=== PATIENT | female | born 1960 | race Caucasian/White ===

== ENCOUNTER 2016-12-22 05:40 | Inpatient (IN) | payer BC ==
[2016-11-10 08:43] VITALS: BMI 55.0; BMI 56.0
--- NOTE | 2016-11-10 09:23 | PAT Medication Instructions ---
Service Date Nov 10, 2016. Current Home Medication List Biotin (Biotin), 5,000 MCG PO QPM Calcium (Caltrate), 600 MG PO QAM Cyclobenzaprine Hcl (Flexeril), 10 MG PO TID PRN for Muscle Spasm Fluorometholone (Ophth) (Fluorometholone), 1 DROP OPB Q2D Loteprednol Etabonate (Lotemax), 1 APPLN OPB Q2D Melatonin (Melatonin), 5 MG PO HS Multivitamin (Multivitamin), 1 TAB PO QPM Medication Instructions For Your Scheduled Surgery - Continue as directed: Fluorometholone (Ophth) (Fluorometholone), 1 DROP OPB Q2D Loteprednol Etabonate (Lotemax), 1 APPLN OPB Q2D - Hold the following medications as of 11/11/16: Biotin (Biotin), 5,000 MCG PO QPM - Hold the following medications the morning of surgery: Cyclobenzaprine Hcl (Flexeril), 10 MG PO TID PRN for Muscle Spasm Calcium (Caltrate), 600 MG PO QAM - Take the following medications as scheduled the night before surgery: Melatonin (Melatonin), 5 MG PO HS Multivitamin (Multivitamin), 1 TAB PO QPM Cyclobenzaprine Hcl (Flexeril), 10 MG PO TID PRN for Muscle Spasm *Nothing to eat or drink after midnight* If you have any questions please call us at [phone] or [phone] or [phone]
[2016-11-10 10:42] LABS: BASO % 0.4 %; BASO ABS # 0.02 K/uL (0-0.2); COMPLETE YES; HEMATOCRIT 35.4 % (37-47); IG% 0.2 %; LYMPH % 30.2 %; MEAN CELL VOLUME 80.3 fL (80-100); MEAN CORPUSCULAR HEMOGLOBIN 24.7 pg (25-34); MEAN CORPUSCULAR HGB CONC 30.8 g/dl (32-36); MEAN PLATELET VOLUME 10.2 fL (7.4-10.4); MONO % 8.2 %; PLATELET COUNT 255 K/uL (130-400); RED BLOOD COUNT 4.41 M/uL (4.2-5.4); WHITE BLOOD COUNT 4.97 K/uL (4.8-10.8)
[2016-11-10 10:46] LABS: URINE APPEARANCE CLEAR (CLEAR); URINE BILIRUBIN NEG (NEG); URINE COLOR YELLOW; URINE NITRITE NEG (NEG); URINE SPECIFIC GRAVITY 1.017 (1.000-1.030); UROBILINOGEN NEG (NEG)
[2016-11-10 10:52] LABS: MANUAL MICROSCOPIC REQUIRED? NO; REVIEW REQ? NO
[2016-11-10 11:13] LABS: BUN/CREATININE RATIO 18.8 (10-20); CREATININE 0.65 mg/dl (0.60-1.20); POTASSIUM 3.9 mmol/L (3.5-5.1)
--- NOTE | 2016-11-21 07:25 | History & Physical Bridge Note ---
H&P Re-Evaluation Bridge Note: I have examined the patient, reviewed the History & Physical and in the interval since the performance of the History & Physical I have noted the following changes of clinical significance: No changes noted
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
[2016-12-22] VITALS (20 sets, daily range): BP systolic 123–168; BP diastolic 80–89; PULSE 56–83; TEMP 36.5–37; O2SAT 97–99; Ht 160 cm; Wt 142.9 kg
[~2016-12-22] VITALS: Ht 160 cm; Wt 142.9 kg
[~2016-12-22 05:40] MED LIST: BIOT1CAP3 PO; CALCTAB5 PO; CEFAZOLIN 3000 MG/65 ML D5W 65 ML IV SCH; CYCL10TA6 PO; FLUO0.1S12 OPB; LACTATED RINGER'S 1000ML IV SCH; LOTE1GEL OPB; MELA1TAB54 PO; MULT-506 PO
[2016-12-22] MEDS ORDERED: CEFAZOLIN 3000 MG/65 ML D5W IV SCH (06:00)
[2016-12-22] MEDS ORDERED: LACTATED RINGER'S 1000ML 1,000 ML IV SCH (06:00)
[2016-12-22] MEDS ORDERED: LIDOCAINE HCL 2% 2 ML VIAL (20MG/ML) ONE (06:23)
[2016-12-22] MEDS ORDERED: ONDANSETRON INJ 2 MG/ML 2 ML VIAL ONE (06:23)
[2016-12-22] MEDS ORDERED: MIDAZOLAM HCL 1 MG/ML 2ML VIAL ONE (06:23)
[2016-12-22] MEDS ORDERED: DEXAMETHASONE SOD INJ 4 MG/ML VIAL ONE (06:23)
[2016-12-22] MEDS ORDERED: PROPOFOL IV EMULSION 10 MG/ML 20 ML VIAL IV ONE (06:23)
[2016-12-22] MEDS ORDERED: FENTANYL CITRATE INJ 50 MCG/1 ML 2 ML VIAL ONE ×2 (06:23→09:18)
[2016-12-22] MEDS ORDERED: ROCURONIUM BROMIDE 10 MG/ML 5 ML VIAL ONE (06:23)
[2016-12-22] MEDS ORDERED: KETAMINE HCL INJ 50 MG/ML 10 ML VIAL ONE (06:23)
[2016-12-22] MEDS ORDERED: SUCCINYLCHOLINE CHLORIDE 20 MG/ML 10 ML VIAL IV ONE (06:23)
[2016-12-22] MEDS ORDERED: SODIUM CHLORIDE 0.9% INJ 10 ML VIAL ONE (06:43)
[2016-12-22] MEDS ORDERED: EpHEDrine SULFATE INJ 50 MG/ML AMP IV PRN (07:00)
[2016-12-22] MEDS ORDERED: ATROPINE SULFATE 0.1 MG/ML 5ML SYR IV PRN (07:00)
[2016-12-22] MEDS ORDERED: ONDANSETRON INJ 2 MG/ML 2 ML VIAL IV PRN (07:00)
[2016-12-22] MEDS ORDERED: NEOSTIGMINE METHYLSULFATE 5 MG/5 ML SYR ONE (08:11)
[2016-12-22] MEDS ORDERED: GLYCOPYRROLATE INJ 0.2 MG/ML VIAL ONE (08:11)
[2016-12-22] MEDS ORDERED: BACITRACIN 50000 UNIT VIAL IR ONE (09:12)
[2016-12-22] MEDS ORDERED: FLOSEAL HEMOSTATIC MATRIX 5ML TOP ONE (09:12)
--- NOTE | 2016-12-22 09:19 | [facility] Post Operative Brief Note ---
Immediate Operative Summary Operative Date Dec 22, 2016. Pre-Operative Diagnosis Disc deterioration, neural foraminal stenosis Post-Operative Diagnosis Disc deterioration, neural foraminal stenosis Procedure(s) Performed c6 Surgeon Dr. Cristino Tamayo Business Operations Coordinator Surgeon(s) Betty Peterson PA-C Estimated Blood Loss 25 Findings stenosis Specimens none per surgeon
[2016-12-22] MEDS ORDERED: HYDROmorphone INJ 0.5 MG/0.5 ML SYR IV PRN (09:30)
[2016-12-22] MEDS ORDERED: NALOXONE HCL 0.4 MG/1 ML VIAL/CARP IV PRN (09:30)
[2016-12-22] MEDS ORDERED: SCOPOLAMINE 1.5 MG TDSY TD SCH (09:30)
[2016-12-22] MEDS ORDERED: DiphenhydrAMINE HCL 50 MG/ML VIAL IV PRN (09:30)
[2016-12-22] MEDS ORDERED: MAGNESIUM HYDROXIDE SUSP 30 ML UDC PO PRN (09:30)
[2016-12-22] MEDS ORDERED: LORAZEPAM 0.5 MG TAB PO PRN (09:30)
[2016-12-22] MEDS ORDERED: DO NOT ADMINISTER FLU VACCINE PRN ×3 (09:30)
[2016-12-22] MEDS ORDERED: ACETAMINOPHEN IV 100 ML IV PRN (09:30)
[2016-12-22] MEDS ORDERED: DEXAMETHASONE INJ 8 MG in SYRINGE 0 ML IV PRN (09:30)
[2016-12-22] MEDS ORDERED: RACEPINEPHRINE 2.25% NEBU SOLN 0.5 ML VIAL INH PRN (09:30)
[2016-12-22] MEDS ORDERED: LORAZEPAM INJ 0.5 MG in SYRINGE 0.75 ML IV PRN (09:30)
[2016-12-22] MEDS ORDERED: DO NOT ADMINISTER PNEUMOCOCCAL VACCINE PRN ×2 (09:30)
--- NOTE | 2016-12-22 09:35 | OPERATIVE REPORT ---
DATE OF OPERATION: 12/22/2016 PREOPERATIVE DIAGNOSES: Cervical spondylosis, myeloradiculopathy. POSTOPERATIVE DIAGNOSES: Same. PROCEDURES PERFORMED: 1. Anterior cervical corpectomy, bilateral foraminotomies C6. 2. Anterior cervical arthrodesis C5-C7. 3. Placement of PEEK cage 25 mm in height between C5 and C7. 4. Placement of locally harvested morcellized autograft combined with Maddy bone grafting in interbody cage. 5. Placement of Hirsch plate and screws from C5-C7. SURGEON: Dr. Cristino Santos. DEFENSIVE DRIVING INSTRUCTOR: Betty Beck PA-C. Due to the complex nature of the procedure, the entire surgery was performed with the offset assistant press operator of MARIA T Biggs. The bilingual sales assistant, under direct supervision, was involved in the actual performance of all aspects of the surgical procedure including hemostasis, tissue retraction and incision, instrument management, patient positioning, and wound closure. ANESTHESIA: General. DISPOSITION: The patient awakened and taken to PACU in stable condition. HISTORY OF PATIENT'S PROBLEMS: A 56-year-old female that presents with above-mentioned diagnosis after failing an extensive course of nonoperative care, elected to undergo the above-mentioned procedure. Risks, benefits, pros, cons, and alternatives were outlined in detail preoperatively. DESCRIPTION OF PROCEDURE: The patient was met with preoperatively, case discussed and all questions were addressed. At that point, the patient was taken back to operative suite and after undergoing successful general endotracheal intubation by department of anesthesia, was placed in supine position on Chalino table with head in Kumar head wrestling coach. All bony prominences were well padded and the eyes were inspected to ensure there was no external pressure placed upon them. At this point, anterior cervical spine was prepped and draped in normal sterile fashion. With the assistance of fluoroscopy, we identified the C6 vertebral body and a transverse incision was placed along the right anterior aspect of the cervical spine overlying this region. Sharp dissection with the assistance of bipolar electrocautery performed down to and exposing anterior cervical spine from C5-C7. We verified our position with fluoroscopy. A self-retaining retractor was placed. I then performed a complete discectomy of C5-6 out to the uncovertebral joints bilaterally followed by C6-7. [place] distracting pins were then placed in C5 and C7 to distract across the C6 vertebral body. A complete corpectomy was then performed including removal of all posterior anular fibers in the longitudinal ligament to address all compression and foraminal disease. Endplates were then burred to subcortical bleeding bone and a 25 mm PEEK cage filled with locally harvested morcellized autograft and Maddy bone graft, tapped in position. Distractor apparatus was removed. Hirsch plate and screws applied with the assistance of fluoroscopy. Incision was then copiously irrigated, explored to ensure there was no damage to surrounding structures or remaining bleeding, 10 round BRAYDEN drain inserted. It was then closed with 2-0 Vicryl in the fascia, 4-0 Monocryl for final skin closure. Steri-Strips and sterile dressing placed. The patient was awakened and taken to PACU in stable condition. I attest to the content of the Intraoperative Record and any orders documented therein. Any exceptio ns are noted below.
[2016-12-22] MEDS: FENTANYL CITRATE INJ 50 MCG/1 ML 2 ML VIAL IV PRN ×4 (09:46→10:01)
--- NOTE | 2016-12-22 10:03 | DIAGNOSTIC IMAGING REPORT ---
INTRAOPERATIVE FLUOROSCOPIC IMAGES OF THE CERVICAL SPINE CLINICAL HISTORY: C6 corpectomy. Anterior fusion. COMPARISON STUDY: Cervical spine CT September 12, 2016. FLUOROSCOPY TIME: 8 seconds. FINDINGS: 2 fluoroscopic images were obtained. Exact localization is difficult given partial visualization of the cervical spine. The images suggest a C6 corpectomy with anterior plate and screws from C5 through C7. IMPRESSION: Intraoperative images demonstrate a C6 corpectomy and C5-C7 anterior fusion. Electronically signed by: Kevin Garduno M.D. 12/22/2016 10:02 AM Dictated Date/Time: 12/22/2016 9:55 AM
[2016-12-22] MEDS ORDERED: HYDROmorphone INJ 1 MG/ML SYR ONE (10:12)
--- NOTE | 2016-12-22 10:54 | Anesthesiology Progress Note ---
Anesthesia Post Op Note Date & Time Dec 22, 2016 at 10:54 Vital Signs Vital Signs Past 12 Hours Date Time Temp Pulse Resp B/P Pulse Ox O2 Delivery O2 Flow Rate FiO2 12/22/16 10:45 36.2 57 12 145/74 99 Nasal Cannula 4 12/22/16 10:35 62 12 170/85 98 Nasal Cannula 4 12/22/16 10:25 69 16 171/87 96 Nasal Cannula 4 12/22/16 10:15 61 14 160/104 92 Nasal Cannula 4 12/22/16 10:05 64 12 161/86 97 Nasal Cannula 4 12/22/16 09:55 66 14 163/92 94 Mask 10 12/22/16 09:45 70 14 160/89 96 Mask 10 12/22/16 09:39 36.4 96 20 198/110 97 Mask 10 12/22/16 06:30 37 71 20 168/80 Room Air 96 Notes Mental Status: alert / awake / arousable, participated in evaluation Pt Amnestic to Procedure: Yes Nausea / Vomiting: adequately controlled Pain: adequately controlled Airway Patency, RR, SpO2: stable & adequate BP & HR: stable & adequate Hydration State: stable & adequate Anesthetic Complications: no major complications apparent
[2016-12-22] MEDS: LACTATED RINGER'S 1000ML 1,000 ML IV SCH (13:03)
[2016-12-22] MEDS: HYDROmorphone INJ 0.5 MG/0.5 ML SYR IV PRN ×3 (13:09→23:24)
[2016-12-22] MEDS ORDERED: RXC5 PO (14:27)
--- NOTE | 2016-12-22 14:28 | Discharge Instructions ---
Discharge Instructions Admission Reason for Admission: Cervical Spinal Stenosis Discharge Discharge Diagnosis / Problem: stenosis Discharge Goals Goal(s): Improve function Activity Recommendations Activity Limitations: per Instructions/Follow-up section . Instructions / Follow-Up Instructions / Follow-Up ACTIVITY RECOMMENDATIONS: SELF CARE INSTRUCTIONS AFTER CERVICAL FUSIONS 1. No smoking. Smoking drastically decreases the chance of a solid fusion. 2. No bending, lifting more than 5 pounds, or twisting (roll like a log when turning in bed). 3. You may shower 3 days after surgery. Thoroughly dry wound. Do not soak in the tub. 4. Cervical collar: Must be worn at all times including sleeping. You may remove the brace only to bath, eat and if you are sitting in a recliner. 5. Please walk as much as you can for exercise. Gradually increase the distance that you walk as your endurance increases. SPECIAL CARE INSTRUCTIONS: VERY IMPORTANT TO READ AND REVIEW A. Do not take any anti-inflammatory medications (i.e. Indocin, Advil, Aspirin, Naprosyn, Aleve, Motrin, etc.) as these may inhibit the chance of a solid fusion. Tylenol is okay to take. B. Your surgical incision has been closed with a cosmetic suture under the skin that will dissolve in about 6 weeks. In 14 days, you can use a pair of clean scissors and cut the suture that is left outside of the skin at the ends of your incision. C. Complications are uncommon, but please contact us if you have any signs or symptoms of: 1. wound infection (fever higher than 102.5 degrees F, redness, separation of wound, drainage, or increasing pain from the incision) 2. blood clots in legs (pain, swelling, redness and warmth in legs) 3. urinary tract infection (fever higher than 102.5 degrees, burning upon urination or increased frequency of urination) 4. nerve problems (inability to walk on your toes or heels, numbness, loss of bowel or bladder control) 5. any other symptoms that concern you. D. Please call the office at if you have any concerns or questions about your operation or recovery. MANAGING PAIN AFTER SPINAL SURGERY 1. Narcotic medication is intended for short-term use and will be provided for surgical pain. Surgical pain usually lasts for a period of 4-6 weeks. Narcotic medication includes Percocet, Vicodin, Darvocet, Tylenol #3 or Lortab. 2. Longer-term pain is more appropriately treated with non-narcotic medication such as Tylenol ES. 3. Muscle spasm is not appropriately treated with narcotics. Muscle relaxers such as Soma, Flexeril or Skelaxin can be used along with Tylenol ES. 4. Remember that we all live with some "aches and pains". This is not unusual or uncommon after an injury or as we get older. 5. We will provide appropriate medication within the normal guidelines of their prescribed use. We will also be very cautious and aware of potential abuse and extended duration of patients' medication needs. 6. Please allow 2-3 days to process refills. Prescriptions will not be mailed but must be picked up at the office. FOLLOW UP VISIT: Keep your scheduled follow-up appointment. Any questions, please call the office at . Current Hospital Diet Patient's current hospital diet: Clear Liquid Diet Discharge Diet Recommended Diet: Regular Diet Procedures Procedures Performed: c6 Pending Studies Studies pending at discharge: no Medical Emergencies . Who to Call and When: Medical Emergencies: If at any time you feel your situation is an emergency, please call 911 immediately. . Non-Emergent Contact Non-Emergency issues call your: Primary Care Provider . "Provider Documentation" section prepared by Cristino Santos. VTE Core Measure Inpt VTE Proph given/why not?: Jigar Oliveira, SCD's
[2016-12-22] MEDS: CHECK SCOPOLAMINE PATCH PLACEMENT SCH (15:55)
[2016-12-22] MEDS: ONDANSETRON INJ 2 MG/ML 2 ML VIAL IV PRN ×2 (16:44→22:23)
[2016-12-22] MEDS: DEXAMETHASONE INJ 6 MG in SYRINGE 0 ML IV SCH (18:02)
[2016-12-22] MEDS: CEFAZOLIN IV 3,000 MG in DEXTROSE 5% 50ML 50 ML IV SCH (20:15)
[2016-12-22] MEDS: DOCUSATE SODIUM 100 MG CAP PO SCH (21:00)
[2016-12-23] VITALS (14 sets, daily range): BP systolic 124–152; BP diastolic 75–86; PULSE 62–88; TEMP 36.5–37.2; O2SAT 93–97
[2016-12-23] MEDS: CHECK SCOPOLAMINE PATCH PLACEMENT SCH ×3 (00:01→16:08)
[2016-12-23] MEDS: LACTATED RINGER'S 1000ML 1,000 ML IV SCH (00:56)
[2016-12-23] MEDS: DEXAMETHASONE INJ 6 MG in SYRINGE 0 ML IV SCH ×2 (01:46→13:43)
[2016-12-23] MEDS: CEFAZOLIN IV 3,000 MG in DEXTROSE 5% 50ML 50 ML IV SCH ×2 (04:03→13:40)
[2016-12-23] MEDS: HYDROmorphone INJ 0.5 MG/0.5 ML SYR IV PRN (04:37)
--- NOTE | 2016-12-23 08:43 | Anesthesiology Progress Note ---
Anesthesia Post Op Note Date & Time Dec 23, 2016 at 08:43 Vital Signs Pain Intensity: 2.0 Vital Signs Past 12 Hours Date Time Temp Pulse Resp B/P Pulse Ox O2 Delivery O2 Flow Rate FiO2 12/23/16 07:26 76 18 96 Nasal Cannula 1.0 12/23/16 06:49 37.1 73 18 124/75 96 Nasal Cannula 1.0 Humidified Oxygen 12/23/16 06:13 95 Nasal Cannula 1.0 Humidified Oxygen 12/23/16 04:54 36.5 72 18 144/81 97 Nasal Cannula 2.0 Humidified Oxygen 12/23/16 04:20 78 18 96 Nasal Cannula 3.0 12/23/16 03:08 37.2 73 18 133/83 97 Nasal Cannula 3.0 Humidified Oxygen 12/23/16 03:04 37.2 73 18 133/83 97 Nasal Cannula 3.0 Humidified Oxygen 12/23/16 00:53 36.7 79 18 129/81 97 Nasal Cannula 3.0 12/23/16 00:51 36.7 79 18 129/81 97 Nasal Cannula 3.0 12/22/16 23:47 68 14 98 Nasal Cannula 3.0 12/22/16 23:15 98 Nasal Cannula 3.0 12/22/16 22:47 36.5 71 18 142/84 98 Nasal Cannula 3.0 12/22/16 22:45 36.5 71 18 142/84 98 Nasal Cannula 3.0 12/22/16 22:45 36.5 14 142/84 98 Nasal Cannula 3.0 96 12/22/16 20:54 36.8 18 149/81 97 Nasal Cannula 3.0 Notes Mental Status: alert / awake / arousable, participated in evaluation Pt Amnestic to Procedure: Yes Nausea / Vomiting: adequately controlled Pain: adequately controlled Airway Patency, RR, SpO2: stable & adequate BP & HR: stable & adequate Hydration State: stable & adequate Anesthetic Complications: no major complications apparent
[2016-12-23] MEDS: DOCUSATE SODIUM 100 MG CAP PO SCH (09:00)
[2016-12-23] MEDS: OXYCODONE HCL IR 5 MG TAB (IMMEDIATE RELEASE) PO PRN ×2 (09:01→13:41)
--- NOTE | 2016-12-23 14:10 | DISCHARGE SUMMARY ---
PRINCIPAL DIAGNOSIS: Cervical spondylosis, mild radiculopathy. HOSPITAL COURSE FOLLOWS: On December 22, patient underwent anterior cervical corpectomy and tolerated this well and taken to the orthopedic floor postoperatively. Postop day #1, she was up and ambulatory, swallowing well, arm symptoms improved. Subsequently discharged home. Discharge orders and instructions found on the chart for further review.
[2016-12-24] MEDS ORDERED: BISACODYL 10 MG SUPP PR PRN (06:00)
[2016-12-24] MEDS ORDERED: BISACODYL 5 MG TABEC PO PRN (06:00)
[2016-12-25] MEDS ORDERED: POLYETHYLENE (MIRALAX) 17 GM PACK PO SCH (09:00)
== END 2016-12-23 16:55 | disposition home or self-care (01) | DRG 473 ==
LOC: ENRESERVTM → ENRESERVDT → C.ACU 05:40 → C.3E 07:30
PROVIDERS: ADMIT Orthopaedic Surgery Orthopaedic Surgery of the Spine; ATTEND Orthopaedic Surgery Orthopaedic Surgery of the Spine
PROC: 0RT30ZZ Resection of Cervical Vertebral Disc, Open Approach (ICD-10-PCS; 2016-12-22)
PROC: 0RG20A0 Fusion of 2 or more Cervical Vertebral Joints with Interbody Fusion Device, Anterior Approach, Anterior Column, Open Approach (ICD-10-PCS; principal; 2016-12-22 07:30)
DX: M47.22 Other spondylosis with radiculopathy, cervical region (principal); M19.90 Unspecified osteoarthritis, unspecified site; Z96.653 Presence of artificial knee joint, bilateral; Z98.84 Bariatric surgery status; Z94.7 Corneal transplant status; Z79.899 Other long term (current) drug therapy; Z82.49 Family history of ischemic heart disease and other diseases of the circulatory system; Z80.9 Family history of malignant neoplasm, unspecified; Z82.61 Family history of arthritis

== ENCOUNTER → 2017-11-13 | Outpatient (CLI) | payer BC ==
[~2017-11-13] MED LIST changes: -CEFAZOLIN 3000 MG/65 ML D5W 65 ML IV SCH; +GADAVIST IV PRN; -LACTATED RINGER'S 1000ML IV SCH; +RXC5 PO
--- NOTE | 2017-11-13 15:14 | DIAGNOSTIC IMAGING REPORT ---
MRI OF THE BRAIN WITHOUT AND WITH IV CONTRAST CLINICAL HISTORY: G50.1 Atypical facial [id number] RIGHT-SIDED FACIAL AND EAR PAIN. COMPARISON STUDY: Noncontrast head CT dated 09/12/2016 TECHNIQUE: MRI of the brain was performed from the vertex to the skull base utilizing various T1 and T2 weighted sequences. Following the IV administration of 14 mL of Gadavist contrast, additional enhanced images were obtained. FINDINGS: Sagittal T1, axial diffusion, proton density and T2 weighted axial, coronal FLAIR, and pre and post axial, coronal, and sagittal T1-weighted images were acquired. No intra or extra-axial mass lesions are visualized. Axial diffusion-weighted images reveal no evidence of acute or subacute infarction. There is no evidence of ventricular dilatation. Proton density T2-weighted and FLAIR images reveal minimal foci of increased T2 signal within the white matter, likely on a small vessel basis. There are no abnormal flow voids. There is no evidence of pathologic enhancement. No trigeminal nerve lesions are visualized. Inflammatory changes are present within the right frontal and ethmoid sinuses. IMPRESSION: 1. No acute intracranial findings. 2. No evidence of acute or subacute infarction 3. No evidence of intracranial mass. No trigeminal lesions are visualized 4. Inflammatory changes within the right frontal and ethmoid sinuses Electronically signed by: Dakota Christina M.D. 11/13/2017 3:13 PM Dictated Date/Time: 11/13/2017 3:07 PM
== END | disposition home or self-care (01) ==
LOC: C.MRIBC 13:57
PROVIDERS: ATTEND Psychiatry & Neurology Neurology
DX: G50.1 Atypical facial pain (principal)

== ENCOUNTER 2018-04-14 15:45 | Inpatient (IN) | payer BC, OTHER ==
[~2018-04-14] VITALS: Ht 160 cm; Wt 140.5 kg
[~2018-04-14 15:45] MED LIST changes: -BIOT1CAP3 PO; -GADAVIST IV PRN
[2018-04-14] MEDS ORDERED: PIPERACILLIN/TAZOBACTAM 4.5 GM/100ML D5W IV STA (16:03)
[2018-04-14] MEDS ORDERED: SODIUM CHLORIDE 0.9% 1000ML 1,000 ML IV ONE (16:03)
[2018-04-14] MEDS ORDERED: ACETAMINOPHEN 500 MG TAB PO STA (16:03)
[2018-04-14] MEDS ORDERED: VANCOMYCIN IV 2,500 MG in SODIUM CHLORIDE 0.9% 500ML 500 ML IV STA (16:13)
[2018-04-14] MEDS ORDERED: VANCOMYCIN CONSULT ACTIVE PRN ×2 (16:15→19:00)
--- NOTE | 2018-04-14 16:21 | DIAGNOSTIC IMAGING REPORT ---
CHEST ONE VIEW PORTABLE CLINICAL HISTORY: Sepsis COMPARISON STUDY: 09/12/2016 FINDINGS: The heart is normal in size. There is mild mediastinal prominence, likely secondary to mediastinal fat deposition given the patient's body habitus. There are postsurgical changes in the cervical spine. There is no failure. There is no focal pulmonary consolidation. There are no pleural effusions.[ IMPRESSION: No active disease in the chest. Electronically signed by: Dakota Christina M.D. 04/14/2018 4:20 PM Dictated Date/Time: 04/14/2018 4:19 PM
[2018-04-14 16:47] LABS: BASO % 0.1 %; BASO ABS # 0.01 K/uL (0-0.2); EOS % 0.1 %; EOS ABS # 0.01 K/uL (0-0.5); HEMATOCRIT 36.2 % (37-47); HEMOGLOBIN 11.7 g/dL (12.0-16.0); IG# 0.03 K/uL (0.00-0.02); LYMPH % 12.9 %; LYMPH ABS # 1.19 K/uL (1.2-3.4); MEAN CORPUSCULAR HEMOGLOBIN 25.5 pg (25-34); MEAN CORPUSCULAR HGB CONC 32.3 g/dl (32-36); MONO % 7.8 %; MONO ABS # 0.72 K/uL (0.11-0.59); NEUT % 78.8 %; NEUT ABS # 7.26 K/uL (1.4-6.5); PLATELET COUNT 155 K/uL (130-400); RED CELL DISTRIBUTION WIDTH CV 17.8 % (11.5-14.5); RED CELL DISTRIBUTION WIDTH SD 51.2 fL (36.4-46.3); WHITE BLOOD COUNT 9.22 K/uL (4.8-10.8)
--- NOTE | 2018-04-14 16:50 | EMERGENCY ROOM VISIT NOTE ---
History Report prepared by Sheba: Sarahi Jacobo Under the Supervision of: Dr. Chava Curiel M.D. First contact with patient: 15:55 Chief Complaint: FEVER Stated Complaint: FEVER AND RASH History of Present Illness The patient is a 57 year old female who presents to the Emergency Room with complaints of constant fever for 3 days. The patient states that it started while she was sleeping and she woke up shaking at 0300. She states that she noticed a rash starting on her stomach shortly before the fever started. She states that it wraps around towards her back and is warm. She reports that she associated it with the fever and the body aches she has been having. The patient states that she tried taking Tylenol with no relief and notes her last dose was 3.5 hours ago. She reports that she went to Urgent Care and was sent here because they believed she may need IV antibiotics. The patient complains of chills and dizziness. The patient denies ever having this before, a stuffy nose, a sore throat, a cough, vomiting, diarrhea, and urinary symptoms. She notes that she has no history of diabetes, kidney problems, hypertension. The patient notes that she takes over the counter Zinc and Iron. She notes a history of trigeminal neuralgia. Source of History: patient Onset: 3 days Position: other (global) Quality: other (fever) Timing: constant Associated Symptoms: + chills, + rash, No sorethroat, No cough, No vomiting , No diarrhea, No urinary symptoms Note: The patient complains of dizziness and body aches. The patient denies a runny nose. Review of Systems See HPI for pertinent positives & negatives. A total of 10 systems reviewed and were otherwise negative. Past Medical & Surgical Medical Problems: (1) Asthma (2) Cellulitis (3) Cervical stenosis of spinal canal (4) Distal radius fracture, left (5) Hypertension Nos (6) Morbid Obesity (7) Trigeminal neuralgia Surgical Problems: (1) Bariatric Surgery Status (2) Corneal transplant status (3) History of carpal tunnel release of both wrists (4) Hx of gastric bypass (5) Knee Joint Replacement Status Family History Diabetes mellitus FH: heart disease Hypertension Social History Smoking Status: Never Smoker Alcohol Use: none Drug Use: none Marital Status: Housing Status: lives with significant other Occupation Status: unemployed Current/Historical Medications Scheduled Biotin (Biotin), 5,000 MCG PO QPM Calcium Carbonate (Calcium 600), 600 MG PO QAM Multivitamin (Multivitamin), 1 TAB PO QPM Oxcarbazepine (Oxcarbazepine), 300 MG PO BID Scheduled PRN Benzonatate (Benzonatate), 100 MG PO TID PRN for Cough Cyclobenzaprine HCl (Cyclobenzaprine HCl), 10 MG PO TID PRN for Muscle Spasm Zolpidem Tartrate (Zolpidem Tartrate), 5 MG PO HS PRN for Sleep Allergies Coded Allergies: NSAIDs (Verified Adverse Reaction, Unknown, cannot take d/t hx of gastric bypass, 12/22/16) Physical Exam Vital Signs Date Time Temp Pulse Resp B/P (MAP) Pulse Ox O2 Delivery O2 Flow Rate FiO2 04/14/18 16:59 82 145/97 95 Room Air 04/14/18 16:29 97 Room Air 04/14/18 15:58 39.3 04/14/18 15:48 38.9 99 20 124/74 97 Room Air Physical Exam GENERAL: Patient is in no acute distress. HEENT: No acute trauma, normocephalic atraumatic, mucous membranes moist, no nasal congestion, no scleral icterus. NECK: No stridor, no adenopathy, no meningismus, trachea is midline. LUNGS: Clear to auscultation bilaterally, no wheeze, no rhonchi, breath sounds equal. HEART: Without murmurs gallops or rubs, regular rate and rhythm. ABDOMEN: Soft, nontender, bowel sounds positive, no hernias, no peritonitis. EXTREMITIES: No cyanosis or edema, full range of motion of all the joints without pain or difficulty, no signs for acute trauma. NEUROLOGIC: Oriented x 3, no acute motor or sensory deficits, no focal weakness. SKIN: Skin has an erythematous, warm, cellulitic appearing rash extending across the lower abdomen in a band around to the buttock and down the sides of the buttock. No drainage. There is an open healing lesion to the left lower quadrant without any drainage. Mild erythema to the left groin crease. Medical Decision & Procedures ER Provider Diagnostic Interpretation: Radiology results as stated below per my review and radiologist interpretation: CHEST ONE VIEW PORTABLE CLINICAL HISTORY: Sepsis COMPARISON STUDY: 09/12/2016 FINDINGS: The heart is normal in size. There is mild mediastinal prominence, likely secondary to mediastinal fat deposition given the patient's body habitus. There are postsurgical changes in the cervical spine. There is no failure. There is no focal pulmonary consolidation. There are no pleural effusions.[ IMPRESSION: No active disease in the chest. Electronically signed by: Dakota Christina M.D. 04/14/2018 4:20 PM Dictated Date/Time: 04/14/2018 4:19 PM Laboratory Results 04/14/18 16:25 Red Blood Count 4.58, Mean Corpuscular Volume 79.0, Mean Corpuscular Hemoglobin 25.5, Mean Corpuscular Hemoglobin Concent 32.3, Mean Platelet Volume 9.0, Neutrophils (%) (Auto) 78.8, Lymphocytes (%) (Auto) 12.9, Monocytes (%) (Auto) 7.8, Eosinophils (%) (Auto) 0.1, Basophils (%) (Auto) 0.1, Neutrophils # (Auto) 7.26, Lymphocytes # (Auto) 1.19, Monocytes # (Auto) 0.72, Eosinophils # (Auto) 0.01, Basophils # (Auto) 0.01 04/14/18 16:25 Test 04/14/18 16:25 04/14/18 16:30 04/14/18 16:36 White Blood Count 9.22 K/uL (4.8-10.8) Red Blood Count 4.58 M/uL (4.2-5.4) Hemoglobin 11.7 g/dL (12.0-16.0) Hematocrit 36.2 % (37-47) Mean Corpuscular Volume 79.0 fL (80-100) Mean Corpuscular Hemoglobin 25.5 pg (25-34) Mean Corpuscular Hemoglobin Concent 32.3 g/dl (32-36) Platelet Count 155 K/uL (130-400) Mean Platelet Volume 9.0 fL (7.4-10.4) Neutrophils (%) (Auto) 78.8 % Lymphocytes (%) (Auto) 12.9 % Monocytes (%) (Auto) 7.8 % Eosinophils (%) (Auto) 0.1 % Basophils (%) (Auto) 0.1 % Neutrophils # (Auto) 7.26 K/uL (1.4-6.5) Lymphocytes # (Auto) 1.19 K/uL (1.2-3.4) Monocytes # (Auto) 0.72 K/uL (0.11-0.59) Eosinophils # (Auto) 0.01 K/uL (0-0.5) Basophils # (Auto) 0.01 K/uL (0-0.2) RDW Standard Deviation 51.2 fL (36.4-46.3) RDW Coefficient of Variation 17.8 % (11.5-14.5) Immature Granulocyte % (Auto) 0.3 % Immature Granulocyte # (Auto) 0.03 K/uL (0.00-0.02) Prothrombin Time 10.9 SECONDS (9.0-12.0) Prothromb Time International Ratio 1.0 (0.9-1.1) Activated Partial Thromboplast Time 32.4 SECONDS (21.0-31.0) Partial Thromboplastin Ratio 1.2 Anion Gap 9.0 mmol/L (3-11) Est Creatinine Clear Calc Drug Dose 114.5 ml/min Estimated GFR () 102.6 Estimated GFR (Non- 88.5 BUN/Creatinine Ratio 10.9 (10-20) Calcium Level 8.4 mg/dl (8.5-10.1) Magnesium Level 2.0 mg/dl (1.8-2.4) Total Bilirubin 0.5 mg/dl (0.2-1) Aspartate Amino Transf (AST/SGOT) 15 U/L (15-37) Alanine Aminotransferase (ALT/SGPT) 12 U/L (12-78) Alkaline Phosphatase 88 U/L (45-117) Total Protein 6.9 gm/dl (6.4-8.2) Albumin 2.9 gm/dl (3.4-5.0) Globulin 4.0 gm/dl (2.5-4.0) Albumin/Globulin Ratio 0.7 (0.9-2) Urine Color YELLOW Urine Appearance CLEAR (CLEAR) Urine pH 6.0 (4.5-7.5) Urine Specific [place] 1.013 (1.000-1.030) Urine Protein 1+ (NEG) Urine Glucose (UA) NEG (NEG) Urine Ketones TRACE (NEG) Urine Occult Blood 1+ (NEG) Urine Nitrite NEG (NEG) Urine Bilirubin NEG (NEG) Urine Urobilinogen NEG (NEG) Urine Leukocyte Esterase MODERATE (NEG) Urine WBC (Auto) >30 /hpf (0-5) Urine RBC (Auto) 0-4 /hpf (0-4) Urine Hyaline Casts (Auto) 1-5 /lpf (0-5) Urine Epithelial Cells (Auto) 10-20 /lpf (0-5) Urine Bacteria (Auto) NEG (NEG) Bedside Lactic Acid Venous 0.97 mmol/L (0.90-1.70) Laboratory results reviewed by me. Medications Administered Medications (Trade) Dose Ordered Sig/Daniel Route Start Time Stop Time Status Last Admin Dose Admin Sodium Chloride 1,000 ml @ 999 mls/hr Q1H1M ONCE IV 04/14/18 16:03 04/14/18 17:03 DC 04/14/18 16:24 999 MLS/HR Piperacillin Sod/ Tazobactam Sod (Zosyn Iv) 4.5 gm ONE STAT IV 04/14/18 16:03 04/14/18 16:08 DC 04/14/18 16:58 4.5 GM Acetaminophen (Tylenol Tab) 1,000 mg NOW STAT PO 04/14/18 16:03 04/14/18 16:08 DC 04/14/18 16:16 1,000 MG Vancomycin HCl 2500 mg/Sodium Chloride 550 ml @ 200 mls/hr NOW STAT IV 04/14/18 16:13 04/14/18 18:57 04/14/18 17:28 200 MLS/HR ED Course 1558: The patient was evaluated in room A9B. A complete history and physical exam was performed. 1603: Ordered Tylenol Tab 1000 mg PO, Zosyn Iv 4.5 gm IV, NSS 1000 ml @ 999 mls/ hr IV. 1613: Ordered Vancomycin HCl 2500 mg/ Sodium Chloride 550 ml @ 200 mls/hr IV. 1728: Discussed the patient's case [facility] The patient will be evaluated for further management. 1746: I reevaluated the patient and updated her on her results. I informed her of the treatment plan. She verbally expressed understanding and agreement. Medical Decision Differential diagnoses include cellulitis, bacteremia, sepsis, UTI, pneumonia, electrolyte imbalance, anemia, herpes zoster. There is no leukocytosis or concerning anemia. No significant electrolyte abnormality, kidney failure, hepatitis. Lactic acid level is not elevated making sepsis less likely. Blood cultures are pending. Urinalysis is suggestive of infection, urine culture is pending. Chest film does not show pneumonia or CHF. On exam, the patient did have an impressive cellulitis across the lower abdominal wall extending to both sides of her buttock. The patient was febrile. She did receive oral Tylenol for fever. She was given IV saline. She received IV Zosyn and IV vancomycin as antibiotic coverage. Given the extensive cellulitis, given her fever, I do think IV antibiotic's are indicated. She deserves a hospital stay. I spoke with the patient and case management. The on-call hospitalist was consulted. Medication Reconcilliation Current Medication List: was personally reviewed by me Blood Pressure Screening Patient's blood pressure: Elevated blood pressure Will be monitored by the hospitalist. Consults Time Called: 172 Consulting Physician: Dr. Kameron Zimmer Hospitalist Returned Call: [phone] Discussed the patient's case with Dr. Kameron Zimmer [facility]. The patient will be evaluated for further management. Impression Primary Impression: Cellulitis Additional Impression: Fever Scribe Attestation The scribe's documentation has been prepared under my direction and personally reviewed by me in its entirety. I confirm that the note above accurately reflects all work, treatment, procedures, and medical decision making performed by me. Departure Information Dispostion Being Evaluated By Hospitalist Referrals Lb Perkins M.D. (PCP) Patient Instructions [facility] Problem Qualifiers
[2018-04-14] MEDS ORDERED: BENZ100C7 PO (16:59)
[2018-04-14] MEDS ORDERED: FLX10 PO (16:59)
[2018-04-14] MEDS ORDERED: CALC600T PO (16:59)
[2018-04-14] MEDS ORDERED: TRL300 PO (16:59)
[2018-04-14] MEDS ORDERED: ZOLP5TAB6 PO (16:59)
[2018-04-14 17:05] LABS: PTT PATIENT 32.4 SECONDS (21.0-31.0)
[2018-04-14 17:08] LABS: ALBUMIN 2.9 gm/dl (3.4-5.0); CALCIUM 8.4 mg/dl (8.5-10.1); CREATININE 0.75 mg/dl (0.60-1.20); POTASSIUM 3.3 mmol/L (3.5-5.1); TOTAL PROTEIN 6.9 gm/dl (6.4-8.2)
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
[2018-04-14] MEDS ORDERED: POTASSIUM CHLORIDE 10 MEQ TABCR PO STA (17:57)
[2018-04-14] MEDS ORDERED: CONSULT PHARMACY STA (17:58)
[2018-04-14] MEDS ORDERED: CYCLOBENZAPRINE HCL 10 MG TAB PO PRN (18:00)
[2018-04-14] MEDS ORDERED: ONDANSETRON INJ 2 MG/ML 2 ML VIAL IV PRN (18:00)
[2018-04-14] MEDS ORDERED: ZOLPIDEM TARTRATE 5 MG TAB PO PRN (18:00)
[2018-04-14] MEDS ORDERED: NSS + 20MEQ KCL 1000ML 1,000 ML IV ONE (18:00)
[2018-04-14] MEDS ORDERED: BIOT1CAP3 PO (18:09)
[2018-04-14] MEDS ORDERED: ALBUT/IPRATROP 3MG/0.5MG NEB 3 ML VIAL INH PRN (18:15)
[2018-04-14 18:47] VITALS: Ht 160 cm; Wt 140.5 kg
[2018-04-14 18:55] VITALS: O2SAT 97
[2018-04-14 19:00] VITALS: BP 144/84; PULSE 72; TEMP 37; O2SAT 94
[2018-04-14] MEDS ORDERED: PIPERACILL/TAZOBAC CONSULT ACTIVE PRN (19:00)
--- NOTE | 2018-04-14 19:19 | Pharmacy Progress Note ---
Pharmacy Antibiotic Consult Date of Service: April 14, 2018. Pharmacy Dosing Scope Pharmacy is consulted to initiate vancomycin IV dosing therapy, order appropriate labs and adjust drug dose/frequency. Subjective The patient is a 57 year old female admitted on April 14, 2018 at 17:57. Objective Height (Feet): 5 Height (Inches): 3.00 Weight (Kilograms): 140.500 Lab Results (24hrs): Test 04/14/18 16:25 04/14/18 16:30 04/14/18 16:36 White Blood Count 9.22 K/uL (4.8-10.8) Red Blood Count 4.58 M/uL (4.2-5.4) Hemoglobin 11.7 g/dL (12.0-16.0) Hematocrit 36.2 % (37-47) Mean Corpuscular Volume 79.0 fL (80-100) Mean Corpuscular Hemoglobin 25.5 pg (25-34) Mean Corpuscular Hemoglobin Concent 32.3 g/dl (32-36) Platelet Count 155 K/uL (130-400) Mean Platelet Volume 9.0 fL (7.4-10.4) Neutrophils (%) (Auto) 78.8 % Lymphocytes (%) (Auto) 12.9 % Monocytes (%) (Auto) 7.8 % Eosinophils (%) (Auto) 0.1 % Basophils (%) (Auto) 0.1 % Neutrophils # (Auto) 7.26 K/uL (1.4-6.5) Lymphocytes # (Auto) 1.19 K/uL (1.2-3.4) Monocytes # (Auto) 0.72 K/uL (0.11-0.59) Eosinophils # (Auto) 0.01 K/uL (0-0.5) Basophils # (Auto) 0.01 K/uL (0-0.2) RDW Standard Deviation 51.2 fL (36.4-46.3) RDW Coefficient of Variation 17.8 % (11.5-14.5) Immature Granulocyte % (Auto) 0.3 % Immature Granulocyte # (Auto) 0.03 K/uL (0.00-0.02) Prothrombin Time 10.9 SECONDS (9.0-12.0) Prothromb Time International Ratio 1.0 (0.9-1.1) Activated Partial Thromboplast Time 32.4 SECONDS (21.0-31.0) Partial Thromboplastin Ratio 1.2 Sodium Level 134 mmol/L (136-145) Potassium Level 3.3 mmol/L (3.5-5.1) Chloride Level 101 mmol/L (98-107) Carbon Dioxide Level 24 mmol/L (21-32) Anion Gap 9.0 mmol/L (3-11) Blood Urea Nitrogen 8 mg/dl (7-18) Creatinine 0.75 mg/dl (0.60-1.20) Est Creatinine Clear Calc Drug Dose 114.5 ml/min Estimated GFR () 102.6 Estimated GFR (Non- 88.5 BUN/Creatinine Ratio 10.9 (10-20) Random Glucose 150 mg/dl (70-99) Calcium Level 8.4 mg/dl (8.5-10.1) Magnesium Level 2.0 mg/dl (1.8-2.4) Total Bilirubin 0.5 mg/dl (0.2-1) Aspartate Amino Transf (AST/SGOT) 15 U/L (15-37) Alanine Aminotransferase (ALT/SGPT) 12 U/L (12-78) Alkaline Phosphatase 88 U/L (45-117) Total Protein 6.9 gm/dl (6.4-8.2) Albumin 2.9 gm/dl (3.4-5.0) Globulin 4.0 gm/dl (2.5-4.0) Albumin/Globulin Ratio 0.7 (0.9-2) Urine Color YELLOW Urine Appearance CLEAR (CLEAR) Urine pH 6.0 (4.5-7.5) Urine Specific [place] 1.013 (1.000-1.030) Urine Protein 1+ (NEG) Urine Glucose (UA) NEG (NEG) Urine Ketones TRACE (NEG) Urine Occult Blood 1+ (NEG) Urine Nitrite NEG (NEG) Urine Bilirubin NEG (NEG) Urine Urobilinogen NEG (NEG) Urine Leukocyte Esterase MODERATE (NEG) Urine WBC (Auto) >30 /hpf (0-5) Urine RBC (Auto) 0-4 /hpf (0-4) Urine Hyaline Casts (Auto) 1-5 /lpf (0-5) Urine Epithelial Cells (Auto) 10-20 /lpf (0-5) Urine Bacteria (Auto) NEG (NEG) Bedside Lactic Acid Venous 0.97 mmol/L (0.90-1.70) Assessment & Plan Assessment * 57 yo F with cellulitis - on Zosyn and vancomycin * SCr likely at/near baseline * Vancomycin 18 mg/kg administered in ED. Will continue with 14 mg/kg IV q12h * Trough level prior to 4th overall dose Plan * Vancomycin 2000 mg IV q12h * Trough 04/16 @ 0330 Pharmacy will continue to follow and will adjust dose/frequency as necessary. Thank you
[2018-04-14] MEDS ORDERED: NON-FORMULARY MEDICATION (Biotin 5,000 MCG) PO SCH (21:00)
[2018-04-14] MEDS: ACETAMINOPHEN 325 MG TAB PO PRN (21:07)
[2018-04-14] MEDS: OXCARBAZEPINE 150 MG TAB PO SCH (21:08)
[2018-04-14] MEDS: HEPARIN SOD 5000 UNIT/0.5 ML CARP SQ SCH (21:13)
[2018-04-14] MEDS: MULTIVITAMIN TAB PO SCH (21:16)
[2018-04-14] MEDS: PIPERACILL/TAZOBAC IV 3.375 GM in D5W 100ML IV SCH (22:34)
[2018-04-14 23:31] VITALS: BP 130/83; PULSE 68; TEMP 36.6; O2SAT 96
[2018-04-15] MEDS ORDERED: MoRPHine SULFATE 2 MG/ML CARP IV PRN (01:30)
[2018-04-15] MEDS: TRAMADOL HCL 50 MG TAB PO PRN (01:43)
[2018-04-15] MEDS ORDERED: VANCOMYCIN TROUGH ONE (03:30)
[2018-04-15] MEDS: VANCOMYCIN IV 2,000 MG in SODIUM CHLORIDE 0.9% 500ML 500 ML IV SCH ×2 (06:07→16:21)
[2018-04-15] MEDS: PIPERACILL/TAZOBAC IV 3.375 GM in D5W 100ML IV SCH ×3 (06:07→21:51)
[2018-04-15 06:10] VITALS: TEMP 38.4
[2018-04-15] MEDS: ACETAMINOPHEN 325 MG TAB PO PRN ×3 (06:13→23:34)
[2018-04-15 06:26] VITALS: BP 129/83; PULSE 85; TEMP 38.4; O2SAT 96
[2018-04-15 07:30] VITALS: TEMP 38.3
[2018-04-15] MEDS: OXCARBAZEPINE 150 MG TAB PO SCH ×2 (07:31→21:45)
[2018-04-15] MEDS: FERROUS SULFATE 325 MG TAB PO SCH ×2 (07:31→16:22)
[2018-04-15] MEDS: CALCIUM CARBONATE 1250MG TAB PO SCH (07:32)
[2018-04-15] MEDS: CHOLECALCIFEROL 1000 INTER.UNIT TAB PO SCH (07:32)
[2018-04-15] MEDS: ZINC SULFATE 220 MG CAP PO SCH (07:32)
[2018-04-15] MEDS: HEPARIN SOD 5000 UNIT/0.5 ML CARP SQ SCH ×2 (07:36→21:47)
[2018-04-15 07:42] LABS: BASO % 0.1 %; BASO ABS # 0.01 K/uL (0-0.2); EOS % 0.5 %; EOS ABS # 0.04 K/uL (0-0.5); HEMATOCRIT 33.9 % (37-47); IG# 0.02 K/uL (0.00-0.02); LYMPH % 10.7 %; MEAN CELL VOLUME 79.6 fL (80-100); MEAN CORPUSCULAR HEMOGLOBIN 25.8 pg (25-34); MEAN CORPUSCULAR HGB CONC 32.4 g/dl (32-36); MEAN PLATELET VOLUME 8.9 fL (7.4-10.4); MONO % 7.6 %; MONO ABS # 0.64 K/uL (0.11-0.59); NEUT % 80.9 %; NEUT ABS # 6.83 K/uL (1.4-6.5); PLATELET COUNT 149 K/uL (130-400); RED CELL DISTRIBUTION WIDTH CV 17.7 % (11.5-14.5); RED CELL DISTRIBUTION WIDTH SD 50.8 fL (36.4-46.3); WHITE BLOOD COUNT 8.44 K/uL (4.8-10.8)
[2018-04-15 08:09] LABS: CALCIUM 8.1 mg/dl (8.5-10.1); CREATININE 0.54 mg/dl (0.60-1.20); POTASSIUM 3.5 mmol/L (3.5-5.1)
[2018-04-15] MEDS ORDERED: CALCIUM CARBONATE 1250MG TAB PO SCH (09:00)
[2018-04-15 09:17] VITALS: TEMP 37
[2018-04-15] MEDS ORDERED: CLOTRIMAZOLE 1% CR 15 GM TUBE EXT ONE (09:30)
[2018-04-15] MEDS ORDERED: BENZONATATE 100MG CAP PO ONE (14:45)
[2018-04-15] MEDS ORDERED: BENZONATATE 100MG CAP PO PRN (15:00)
[2018-04-15 15:44] VITALS: BP 124/83; PULSE 71; TEMP 36.6; O2SAT 97
[2018-04-15] MEDS: MULTIVITAMIN TAB PO SCH (21:46)
--- NOTE | 2018-04-15 21:51 | Progress Note ---
Progress Note Date of Service April 15, 2018. Progress Note SUBJECTIVE Patient denied acute pain or shortness of breath. Denied itch. Physical Exam General Appearance: no apparent distress, + obese Head: normocephalic, atraumatic Eyes: normal inspection, EOMI ENT: normal ENT inspection, hearing grossly normal Neck: supple, trachea midline Respiratory/Chest: chest non-tender, lungs clear, normal breath sounds, no respiratory distress, no accessory muscle use Cardiovascular: regular rate, rhythm, Abdomen/GI/Skin: normal bowel sounds, non tender, soft, Erythematous rash extending across the lower abdomen like a band extending to buttocks Back: normal inspection Extremities: nontender Neurologic: alert, normal mood/affect, oriented x 3 Assessment and Plan Abdominal Wall Cellulitis: H/O Chronic wound on left side of abdomen -continue Vancomycin/Zosyn -Apply Clotrimazole cream to erythema Trigeminal Neuralgia: Continue home meds Abnormal UA: Denies Dysuria, urinary frequency URINE CULTURE Preliminary 04/15/18-0920 [place] GROWTH PRESENT, REINCUBATING. Morbid Obesity: H/O Gastric Bypass Surgery Continue usual supplements BMI:54.9 Electrolytes monitor and replete electrolytes Elevated blood Sugar levels: Denies H/O Diabetes Check A1C EMIGDIO H/O Asthma as per records Denies respiratory symptoms Nebs PRN DVT Px: Heparin SQ Code Status: Full Code
[2018-04-15] MEDS ORDERED: POTASSIUM CHLORIDE 20 MEQ TABCR PO STA (21:57)
[2018-04-15] MEDS ORDERED: MAGNESIUM SULFATE 1GM / D5W 100 ML IV ONE (22:00)
[2018-04-16 00:18] VITALS: BP 131/80; PULSE 87; TEMP 38.5; O2SAT 98
[2018-04-16 00:58] VITALS: TEMP 37.9
[2018-04-16] MEDS ORDERED: VANCOMYCIN TROUGH ONE (03:30)
[2018-04-16 03:43] LABS: BASO % 0.1 %; BASO ABS # 0.01 K/uL (0-0.2); EOS % 2.1 %; EOS ABS # 0.18 K/uL (0-0.5); HEMATOCRIT 33.3 % (37-47); HEMOGLOBIN 10.7 g/dL (12.0-16.0); IG# 0.02 K/uL (0.00-0.02); LYMPH % 18.6 %; LYMPH ABS # 1.57 K/uL (1.2-3.4); MEAN CELL VOLUME 80.2 fL (80-100); MEAN CORPUSCULAR HEMOGLOBIN 25.8 pg (25-34); MEAN CORPUSCULAR HGB CONC 32.1 g/dl (32-36); MEAN PLATELET VOLUME 8.6 fL (7.4-10.4); MONO % 10.5 %; MONO ABS # 0.89 K/uL (0.11-0.59); NEUT % 68.5 %; NEUT ABS # 5.77 K/uL (1.4-6.5); PLATELET COUNT 156 K/uL (130-400); RED CELL DISTRIBUTION WIDTH CV 17.9 % (11.5-14.5); RED CELL DISTRIBUTION WIDTH SD 52.2 fL (36.4-46.3); WHITE BLOOD COUNT 8.44 K/uL (4.8-10.8)
[2018-04-16 04:02] LABS: ALBUMIN 2.4 gm/dl (3.4-5.0); CALCIUM 8.1 mg/dl (8.5-10.1); CREATININE 0.73 mg/dl (0.60-1.20); POTASSIUM 3.7 mmol/L (3.5-5.1); TOTAL PROTEIN 6.2 gm/dl (6.4-8.2)
[2018-04-16] MEDS: VANCOMYCIN IV 2,000 MG in SODIUM CHLORIDE 0.9% 500ML 500 ML IV SCH (04:11)
[2018-04-16] MEDS: PIPERACILL/TAZOBAC IV 3.375 GM in D5W 100ML IV SCH ×3 (05:52→21:10)
[2018-04-16 07:16] LABS: HEMOGLOBIN A1C 5.3 % (4.5-5.6)
[2018-04-16 07:51] VITALS: BP 144/79; PULSE 77; TEMP 36.8; O2SAT 97
[2018-04-16] MEDS: ZINC SULFATE 220 MG CAP PO SCH (07:55)
[2018-04-16] MEDS: CHOLECALCIFEROL 1000 INTER.UNIT TAB PO SCH (07:55)
[2018-04-16] MEDS: CALCIUM CARBONATE 1250MG TAB PO SCH (07:55)
[2018-04-16] MEDS: CLOTRIMAZOLE 1% CR 15 GM TUBE EXT SCH (07:55)
[2018-04-16] MEDS: OXCARBAZEPINE 150 MG TAB PO SCH ×2 (07:55→21:03)
[2018-04-16] MEDS: FERROUS SULFATE 325 MG TAB PO SCH ×2 (07:56→17:21)
[2018-04-16] MEDS: HEPARIN SOD 5000 UNIT/0.5 ML CARP SQ SCH ×2 (07:59→21:02)
--- NOTE | 2018-04-16 08:42 | Pharmacy Progress Note ---
Pharmacy Antibiotic Prog Note Date of Service April 16, 2018. Subjective The patient is currently receiving vancomycin 2000 mg IV every 12 hours. The patient is currently on day # 3 of vancomycin IV therapy. Objective Height (Feet): 5 Height (Inches): 3.00 Weight (Kilograms): 140.500 Lab Results (24hrs): Test 04/16/18 03:32 White Blood Count 8.44 K/uL (4.8-10.8) Red Blood Count 4.15 M/uL (4.2-5.4) Hemoglobin 10.7 g/dL (12.0-16.0) Hematocrit 33.3 % (37-47) Mean Corpuscular Volume 80.2 fL (80-100) Mean Corpuscular Hemoglobin 25.8 pg (25-34) Mean Corpuscular Hemoglobin Concent 32.1 g/dl (32-36) Platelet Count 156 K/uL (130-400) Mean Platelet Volume 8.6 fL (7.4-10.4) Neutrophils (%) (Auto) 68.5 % Lymphocytes (%) (Auto) 18.6 % Monocytes (%) (Auto) 10.5 % Eosinophils (%) (Auto) 2.1 % Basophils (%) (Auto) 0.1 % Neutrophils # (Auto) 5.77 K/uL (1.4-6.5) Lymphocytes # (Auto) 1.57 K/uL (1.2-3.4) Monocytes # (Auto) 0.89 K/uL (0.11-0.59) Eosinophils # (Auto) 0.18 K/uL (0-0.5) Basophils # (Auto) 0.01 K/uL (0-0.2) RDW Standard Deviation 52.2 fL (36.4-46.3) RDW Coefficient of Variation 17.9 % (11.5-14.5) Immature Granulocyte % (Auto) 0.2 % Immature Granulocyte # (Auto) 0.02 K/uL (0.00-0.02) Sodium Level 139 mmol/L (136-145) Potassium Level 3.7 mmol/L (3.5-5.1) Chloride Level 106 mmol/L (98-107) Carbon Dioxide Level 28 mmol/L (21-32) Anion Gap 5.0 mmol/L (3-11) Blood Urea Nitrogen 6 mg/dl (7-18) Creatinine 0.73 mg/dl (0.60-1.20) Est Creatinine Clear Calc Drug Dose 117.6 ml/min Estimated GFR () 106.0 Estimated GFR (Non- 91.4 BUN/Creatinine Ratio 7.9 (10-20) Random Glucose 100 mg/dl (70-99) Calcium Level 8.1 mg/dl (8.5-10.1) Magnesium Level 2.2 mg/dl (1.8-2.4) Total Bilirubin 0.4 mg/dl (0.2-1) Aspartate Amino Transf (AST/SGOT) 18 U/L (15-37) Alanine Aminotransferase (ALT/SGPT) 15 U/L (12-78) Alkaline Phosphatase 74 U/L (45-117) Total Protein 6.2 gm/dl (6.4-8.2) Albumin 2.4 gm/dl (3.4-5.0) Globulin 3.8 gm/dl (2.5-4.0) Albumin/Globulin Ratio 0.6 (0.9-2) Vancomycin Level Trough 15.4 mcg/ml (SEE COMMENT) Assessment & Plan Assessment * 57 yo F with cellulitis - on Zosyn and vancomycin * WBC wnl but patient is persistently febrile * SCr stable and likely at/near baseline * Cultures remain negative Vancomycin * Goal vancomycin trough ~15 mcg/mL for cellulitis (unknown organism) * Trough of 15.4 mcg/mL is therapeutic * Patient at significant risk for accumulation of vancomycin (without dose change) 2nd BMI of 54.9 kg/m2 * Will decrease vancomycin in order to maintain trough. However, will only do so slightly as patient is persistently febrile. * Repeat trough prior to 4th dose of new regimen Plan * Decrease vancomycin 1750 mg IV q12h * Trough 04/18 @ 4826 Pharmacy will continue to follow and will adjust dose/frequency as necessary. Thank you
--- NOTE | 2018-04-16 11:25 | Progress Note ---
Progress Note Date of Service April 16, 2018. Progress Note ID Consult Dictated #[id number] A/P: 1. Abdominal Wall Cellulitis -continue abx, follow cultures -thank you
--- NOTE | 2018-04-16 12:14 | INFECT. DISEASE CONSULTATION ---
DATE OF CONSULTATION: 04/16/2018 Infectious disease consult note. CONSULTATION: 04/16/2018. HISTORY OF PRESENT ILLNESS: This is a 57-year-old female who was admitted to the hospital after she had worsening abdominal pain and erythema over her right abdomen. She did have a wound on her left abdomen which has been present for 6 months but has healed. She then noticed worsening erythema on the right side associated with pain and fevers and chills. She was initially seen at an urgent care center and it was suggested that she follow up in the Emergency Room for intravenous antibiotics. She was admitted to the hospital and she has been started on vancomycin and Zosyn. She is tolerating these antibiotics well. She continues to complain of fevers and chills and she has had daily fevers since admission; on the , her T-max was 39.3 and on the it was 38.4 and overnight it was 38.5. She is currently afebrile. She states overall she is feeling somewhat better. Her pain has improved and she believes that her fevers are getting better. She denies any cough, shortness of breath, nausea, vomiting, diarrhea. She has no urinary symptoms. Blood cultures were obtained and are negative. Her white blood cell count is normal. Her family is at the bedside. She denies any drainage or bleeding or trauma to the area. Her remaining review of systems is unremarkable. PAST MEDICAL HISTORY: Significant for asthma, history of cellulitis, cervical stenosis, radius fracture, hypertension, morbid obesity, trigeminal neuralgia. PAST SURGICAL HISTORY: Significant for gastric bypass, corneal transplants, carpal tunnel release bilaterally and joint replacement surgery. FAMILY HISTORY: Noncontributory. SOCIAL HISTORY: Negative for tobacco use, alcohol use and drug use. ALLERGIES: SHE HAS ALLERGIES TO NSAIDs. MEDICATIONS: Include vancomycin, Neurontin, Lotrimin cream, Tessalon Perles, vitamin D, zinc, calcium, iron, tramadol, morphine, Zosyn, heparin, multivitamin, Trileptal, DuoNebs, Tylenol, Flexeril and Ambien. PHYSICAL EXAMINATION: VITAL SIGNS: She is currently afebrile, T-max is 38.5, pulse 77, respiratory rate 20, blood pressure 144/79, oxygen saturation is 97% on room air. GENERAL: She is awake, alert and oriented x3. She is in no acute distress. HEENT: Mucous membranes are moist. Extraocular muscles are intact. HEART: Regular. LUNGS: Clear. ABDOMEN: Soft and nondistended. EXTREMITIES: There is no lower extremity edema. Examination of the right side of the abdomen does reveal significant erythema from the umbilicus radiating around the flank. It is somewhat decreased from the line previously drawn. It is warm and tender to touch. There are no open lesions or drainage. LABORATORY STUDIES: CBC today, white blood cell count 8.4, hemoglobin 10.7, platelets 156. Chemistry panel: Sodium 139, potassium 3.7, chloride 106, bicarbonate 28, BUN 6, creatinine 0.7, glucose 100. UA was negative. Trough today is 15.4. Blood cultures are negative. IMAGING: Chest x-ray was unremarkable. ASSESSMENT AND PLAN: Abdominal wall cellulitis. She will be maintained on IV antibiotics. Blood cultures are negative to date. We will follow her response and hopefully transition her to oral antibiotics as her cellulitis improves. Thank you for this consultation.
[2018-04-16] MEDS: GABAPENTIN 100 MG CAP PO SCH ×2 (13:25→21:03)
[2018-04-16 16:24] VITALS: BP 116/81; PULSE 75; TEMP 36.9; O2SAT 91
[2018-04-16] MEDS: VANCOMYCIN IV 1,750 MG in SODIUM CHLORIDE 0.9% 500ML 500 ML IV SCH (17:21)
--- NOTE | 2018-04-16 19:22 | Progress Note ---
Progress Note Date of Service April 16, 2018. Progress Note SUBJECTIVE Patient denied acute pain or shortness of breath. Denied itch. Physical Exam General Appearance: no apparent distress, + obese Head: normocephalic, atraumatic Eyes: normal inspection, EOMI ENT: normal ENT inspection, hearing grossly normal Neck: supple, trachea midline Respiratory/Chest: chest non-tender, lungs clear, normal breath sounds, no respiratory distress, no accessory muscle use Cardiovascular: regular rate, rhythm, Abdomen/GI/Skin: normal bowel sounds, non tender, soft, Erythematous rash extending across the lower abdomen / rash on both buttocks, some minimal resolution compared to yesterday Back: normal inspection Extremities: nontender Neurologic: alert, normal mood/affect, oriented x 3 Assessment and Plan Abdominal Wall Cellulitis: H/O Chronic wound on left side of abdomen -continue Vancomycin/Zosyn -Apply Clotrimazole cream to erythema -admission blood cultures negative -Infectious disease consult assessed patient and re-sent blood cultures on , Vancomycin stopped. Continue IV Zosyn -Dermatology consult also requested Itch/Pain of the abdomen -started gabapentin as a trial medication today Trigeminal Neuralgia: -on Trilepta home medication, patient denies having rashes from this medication Abnormal UA: Denies Dysuria, urinary frequency URINE CULTURE Final 04/16/18-0855 MORE THAN THREE TYPES OF ORGANISMS PRESENT, ALL HIGH COUNTS MIXED PROBABLE SKIN ABDI - NO FURTHER IDENTIFICATIONS OR SENSITIVITIES TO FOLLOW. Morbid Obesity: H/O Gastric Bypass Surgery Continue usual supplements BMI:54.9 Electrolytes monitor and replete electrolytes Elevated blood Sugar levels: Denies H/O Diabetes Check A1C EMIGDIO H/O Asthma as per records Denies respiratory symptoms Nebs PRN DVT Px: Heparin SQ Code Status: Full Code
--- NOTE | 2018-04-16 20:39 | DERMATOLOGY CONSULTATION ---
DATE OF CONSULTATION: 04/16/2018 CHIEF COMPLAINT: Rash. HISTORY OF PRESENT ILLNESS: The patient is a pleasant 57-year-old female who was admitted to the hospital on 04/14/2018 from the Emergency Room. She has a history of gastric bypass, obstructive sleep apnea, insomnia, trigeminal neuralgia, osteoarthritis, morbid obesity, asthma per records. The patient was admitted for a rash on her abdomen for 3 days duration. She has had a chronic wound for the past 6-8 months on her left abdomen which occasionally bleeds. The rash started on her left abdomen and spread to her right abdomen over the next day. It was very painful and very hot. She had fevers up to 103.1. Her fever spiked on and off during those 3 days until she came to the Emergency Room. The Tylenol was not enough to help it. Other than poor appetite, she denies any headaches, sweats, chest pain, coughing, shortness of breath, abdominal pain, nausea, vomiting, or diarrhea. She does note that she has had a cough now for 24 hours, but she relates not to be on antibiotics and having her nasal symptoms flare. PAST MEDICAL HISTORY: Asthma, obstructive sleep apnea, trigeminal neuralgia, morbid obesity, status post gastric bypass. SOCIAL HISTORY: , lives with family. They are at bedside. Never smoked. She does not use alcohol. ALLERGIES: NSAIDS. HOME MEDICATIONS: Biotin 5000 mg daily, calcium carbonate 600 mg daily, multivitamin daily, oxcarbazepine 300 mg p.o. b.i.d. Current meds: In chart- On IV antibiotics per infectious disease recommedation, currently on Vanco. REVIEW OF SYSTEMS: See HPI. PHYSICAL EXAMINATION GENERAL: Well appearing female, in no acute distress. Alert and oriented x3. Good mood. SKIN: Complete skin exam performed of face, scalp, neck, chest, back, abdomen, upper extremities bilaterally including hands, fingers, and fingernails. Also examined oral and ocular mucous membranes which are clear. The rash is located only along the bilateral superior buttocks, flank, and lower abdominal areas. There are no blisters. There are no targets. There is an outline drawn, and the rash has improved since that time. ASSESSMENT AND PLAN: Likely cellulitis. With the patient's temperatures to 103, the feeling of heat and pain in this rash as well as the apparent response to antibiotics as the rash is not as significant as it was previously as denoted by the pen outlines, I favor the diagnosis of cellulitis. I see ID has weighed in. She also has pending urine cultures which are showing some positivity. Other than the possibility of cellulitis, the other possibility on the differential right now would be atypical zoster. The fever course and lack of blisters would not go along with zoster but the dermatomal distribution would. Because of this, to cover for atypical zoster, I would recommend covering with 1 g of Valtrex t.i.d. for 7 days and putting her on contact precautions. I will attempt to convey these recommendations verbally to the primary team. Again, I favor cellulitis, but since I cannot rule out zoster and it is fairly dermatomal, I do not feel there is a downside covering for it. I will follow along peripherally. Please do not hesitate to contact me if you need me to return to see the patient acutely. You can do this 24x7 by calling [phone]. Thank you for the consultation. JOSE RAMON
[2018-04-16] MEDS: MULTIVITAMIN TAB PO SCH (21:03)
[2018-04-16] MEDS: ACETAMINOPHEN 325 MG TAB PO PRN (21:12)
[2018-04-16 23:02] VITALS: BP 113/73; PULSE 65; TEMP 37.1; O2SAT 95
[2018-04-17] MEDS: PIPERACILL/TAZOBAC IV 3.375 GM in D5W 100ML IV SCH ×3 (06:07→21:26)
[2018-04-17] MEDS: VANCOMYCIN IV 1,750 MG in SODIUM CHLORIDE 0.9% 500ML 500 ML IV SCH ×2 (06:07→17:18)
[2018-04-17 07:36] LABS: HEMATOCRIT 34.6 % (37-47); MEAN CELL VOLUME 81.6 fL (80-100); MEAN CORPUSCULAR HEMOGLOBIN 25.9 pg (25-34); MEAN CORPUSCULAR HGB CONC 31.8 g/dl (32-36); PLATELET COUNT 191 K/uL (130-400); RED CELL DISTRIBUTION WIDTH CV 17.5 % (11.5-14.5); RED CELL DISTRIBUTION WIDTH SD 52.1 fL (36.4-46.3); WHITE BLOOD COUNT 5.85 K/uL (4.8-10.8)
[2018-04-17] MEDS: CLOTRIMAZOLE 1% CR 15 GM TUBE EXT SCH (07:36)
[2018-04-17] MEDS: FERROUS SULFATE 325 MG TAB PO SCH ×2 (07:36→17:18)
[2018-04-17] MEDS: CHOLECALCIFEROL 1000 INTER.UNIT TAB PO SCH (07:36)
[2018-04-17] MEDS: OXCARBAZEPINE 150 MG TAB PO SCH ×2 (07:36→21:23)
[2018-04-17] MEDS: ZINC SULFATE 220 MG CAP PO SCH (07:36)
[2018-04-17] MEDS: CALCIUM CARBONATE 1250MG TAB PO SCH (07:36)
[2018-04-17] MEDS: GABAPENTIN 100 MG CAP PO SCH ×3 (07:36→21:23)
[2018-04-17 07:37] VITALS: BP 137/75; PULSE 67; TEMP 36.9; O2SAT 97
[2018-04-17] MEDS: HEPARIN SOD 5000 UNIT/0.5 ML CARP SQ SCH ×2 (07:40→21:26)
[2018-04-17] MEDS: ACETAMINOPHEN 325 MG TAB PO PRN ×2 (07:47→18:28)
--- NOTE | 2018-04-17 12:17 | Progress Note ---
Internal Med Progress Note Date of Service: April 17, 2018. Provider Documentation: SUBJECTIVE: Seen and examined at bedside Reports headache since being started on Valtrex Evaluated by Dermatology and was started on Valtrex for Possible atypical Zoster Reports mild pain at the site of rash No other complaints OBJECTIVE: Vital Signs-as noted below Physical Exam: General Appearance:Obese, no apparent distress Head: normocephalic, Atraumatic Eyes: normal inspection, EOMI, PERRL Neck: supple, Trachea midline Respiratory/Chest: Normal breath sounds, CTA Cardiovascular: S1, S2, No murmur Abdomen/GI:Soft, Non tender, Bowel sounds present, erythematous rash on abdomen extending to buttocks Extremities/Musculoskelatal:normal inspection, no edema Neurologic/Psych:AAOX3, grossly no focal neurological deficits Skin: normal color, warm Lab data as noted below. ASSESSMENT & PLAN: Abdominal Wall Cellulitis: H/O Chronic wound on left side of abdomen ? Atypical Zoster continue Vanco / Zosyn as per ID Blood cultures negative to date Appreciate ID and Dermatology input Started on Valtrex: to complete 7 day course Trigeminal Neuralgia: Continue Trileptal Abnormal UA: Denies Dysuria, urinary frequency Urine culture: negative Morbid Obesity: H/O Gastric Bypass Surgery Continue usual supplements BMI:54.9 Electrolytes monitor and replete electrolytes as needed Elevated blood Sugar levels: Denies H/O Diabetes A1C:5.3 EMIGDIO Not using CPAP at home H/O Asthma as per records Denies respiratory symptoms Nebs PRN DVT Px: Heparin SQ Code Status: Full Code Vital Signs: Date Time Temp Pulse Resp B/P (MAP) Pulse Ox O2 Delivery O2 Flow Rate FiO2 04/17/18 08:00 Room Air 04/17/18 07:37 36.9 67 17 137/75 (95) 97 Room Air 04/17/18 00:00 Room Air 04/16/18 23:02 37.1 65 16 113/73 (86) 95 Room Air 04/16/18 16:24 36.9 75 18 116/81 (93) 91 Room Air 04/16/18 16:00 Room Air Lab Results: Results Past 24 Hours Test 04/17/18 07:16 Range/Units White Blood Count 5.85 4.8-10.8 K/uL Red Blood Count 4.24 4.2-5.4 M/uL Hemoglobin 11.0 12.0-16.0 g/dL Hematocrit 34.6 37-47 % Mean Corpuscular Volume 81.6 80-100 fL Mean Corpuscular Hemoglobin 25.9 25-34 pg Mean Corpuscular Hemoglobin Concent 31.8 32-36 g/dl RDW Standard Deviation 52.1 36.4-46.3 fL RDW Coefficient of Variation 17.5 11.5-14.5 % Platelet Count 191 130-400 K/uL Mean Platelet Volume 9.0 7.4-10.4 fL
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
[2018-04-17 16:15] VITALS: BP 117/72; PULSE 61; TEMP 36.5; O2SAT 98
[2018-04-17] MEDS: MULTIVITAMIN TAB PO SCH (21:23)
[2018-04-18 00:17] VITALS: BP 126/78; PULSE 61; TEMP 36.7; O2SAT 97
[2018-04-18] MEDS ORDERED: VANCOMYCIN TROUGH ONE (05:30)
[2018-04-18] MEDS: VANCOMYCIN IV 1,750 MG in SODIUM CHLORIDE 0.9% 500ML 500 ML IV SCH (06:06)
[2018-04-18] MEDS: PIPERACILL/TAZOBAC IV 3.375 GM in D5W 100ML IV SCH (06:06)
[2018-04-18 06:11] LABS: CREATININE 0.69 mg/dl (0.60-1.20)
[2018-04-18 07:21] VITALS: BP 150/83; PULSE 62; TEMP 36.7; O2SAT 94
[2018-04-18] MEDS: CHOLECALCIFEROL 1000 INTER.UNIT TAB PO SCH (08:18)
[2018-04-18] MEDS: ZINC SULFATE 220 MG CAP PO SCH (08:18)
[2018-04-18] MEDS: CALCIUM CARBONATE 1250MG TAB PO SCH (08:18)
[2018-04-18] MEDS: FERROUS SULFATE 325 MG TAB PO SCH ×2 (08:19→16:17)
[2018-04-18] MEDS: OXCARBAZEPINE 150 MG TAB PO SCH ×2 (08:19→20:52)
[2018-04-18] MEDS: GABAPENTIN 100 MG CAP PO SCH ×3 (08:19→20:52)
[2018-04-18] MEDS: CLOTRIMAZOLE 1% CR 15 GM TUBE EXT SCH (08:19)
[2018-04-18] MEDS: HEPARIN SOD 5000 UNIT/0.5 ML CARP SQ SCH ×2 (08:21→20:57)
[2018-04-18] MEDS ORDERED: MoRPHine SULFATE 4 MG/ML 1 ML CARP\\VIAL IV PRN (08:30)
--- NOTE | 2018-04-18 08:44 | Pharmacy Progress Note ---
Pharmacy Abx Dose Short Note Date of Service April 18, 2018. Assessment & Plan Assessment 57 year old female receiving IV Zosyn & Vancomycin for treatment of abdominal wall cellulitis Day # 5 of antimicrobial therapy. Dose was reduced recently to prevent accumulation. Has continued afebrile until yesterday. De-escalation pending attending consulting with ID via phone call yesterday. Will remain with current plan for now. Plan Vancomycin * Trough level of 16.4 mcg/mL is therapeutic * Continue dose of 1750 mg IV every 12 hours. * Goal trough level for of ~15 mcg/mL Pharmacy will continue to follow and will adjust dose/frequency as necessary. Thank you.
[2018-04-18] MEDS: ACETAMINOPHEN 325 MG TAB PO PRN ×2 (09:22→20:52)
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
--- NOTE | 2018-04-18 12:51 | Progress Note ---
Internal Med Progress Note Date of Service: April 18, 2018. Provider Documentation: SUBJECTIVE: Seen and examined at bedside Reports having dizziness today and continues to have headache Has has intermittent cough Denies chest pain, SOB No other complaints OBJECTIVE: Vital Signs-as noted below Physical Exam: General Appearance:Obese, no apparent distress Head: normocephalic, Atraumatic Eyes: normal inspection, EOMI, PERRL Neck: supple, Trachea midline Respiratory/Chest: Normal breath sounds, CTA Cardiovascular: S1, S2, No murmur Abdomen/GI:Soft, Non tender, Bowel sounds present, erythematous rash on abdomen extending to buttocks improving Extremities/Musculoskelatal:normal inspection, no edema Neurologic/Psych:AAOX3, grossly no focal neurological deficits Skin: normal color, warm Lab data as noted below. ASSESSMENT & PLAN: Abdominal Wall Cellulitis: H/O Chronic wound on left side of abdomen ? Atypical Zoster continue Vanco / Zosyn as per ID>>transitioned to Keflex Blood cultures negative to date Appreciate ID and Dermatology input Started on Valtrex: to complete 7 day course but patient developed headache and dizziness Discussed with dermatology: OK to DC Valtrex Plan to continue Keflex as per ID: Likely 10 day course Trigeminal Neuralgia: Continue Trileptal Abnormal UA: Denies Dysuria, urinary frequency Urine culture: negative Morbid Obesity: H/O Gastric Bypass Surgery Continue usual supplements BMI:54.9 Electrolytes monitor and replete electrolytes as needed Elevated blood Sugar levels: Denies H/O Diabetes A1C:5.3 EMIGDIO Not using CPAP at home H/O Asthma as per records Denies respiratory symptoms Nebs PRN DVT Px: Heparin SQ Code Status: Full Code Disposition: Likely to discharge home tomorrow if stable Vital Signs: Date Time Temp Pulse Resp B/P (MAP) Pulse Ox O2 Delivery O2 Flow Rate FiO2 04/18/18 08:00 Room Air 04/18/18 07:21 36.7 62 18 150/83 (105) 94 Room Air 04/18/18 00:19 Room Air 04/18/18 00:17 36.7 61 18 126/78 (94) 97 Room Air 04/17/18 16:15 36.5 61 18 117/72 (87) 98 Room Air 04/17/18 16:00 Room Air Lab Results: Results Past 24 Hours Test 04/18/18 05:19 Range/Units Creatinine 0.69 0.60-1.20 mg/dl Est Creatinine Clear Calc Drug Dose 124.4 ml/min Estimated GFR () 112.0 Estimated GFR (Non- 96.6 Vancomycin Level Trough 16.4 SEE COMMENT mcg/ml
[2018-04-18] MEDS: CEPHALEXIN MONOHYDRATE 500 MG CAP PO SCH ×2 (14:28→20:52)
[2018-04-18 15:59] VITALS: BP 142/85; PULSE 58; TEMP 36.5; O2SAT 96
[2018-04-18] MEDS ORDERED: DiphenhydrAMINE HCL 12.5MG/5 ML UDC PO PRN (18:15)
[2018-04-18] MEDS: MULTIVITAMIN TAB PO SCH (20:52)
[2018-04-18] MEDS: TRAMADOL HCL 50 MG TAB PO PRN (23:36)
[2018-04-18 23:43] VITALS: BP 118/78; PULSE 61; TEMP 36.9; O2SAT 94
[2018-04-19 06:54] LABS: HEMOGLOBIN 10.8 g/dL (12.0-16.0); MEAN CELL VOLUME 82.3 fL (80-100); MEAN CORPUSCULAR HEMOGLOBIN 26.2 pg (25-34); MEAN CORPUSCULAR HGB CONC 31.8 g/dl (32-36); MEAN PLATELET VOLUME 8.9 fL (7.4-10.4); PLATELET COUNT 243 K/uL (130-400); RED CELL DISTRIBUTION WIDTH CV 17.2 % (11.5-14.5); RED CELL DISTRIBUTION WIDTH SD 52.2 fL (36.4-46.3); WHITE BLOOD COUNT 4.91 K/uL (4.8-10.8)
[2018-04-19 06:58] VITALS: BP 127/82; PULSE 57; TEMP 36.6; O2SAT 100
[2018-04-19 07:44] LABS: CALCIUM 8.5 mg/dl (8.5-10.1); CREATININE 0.68 mg/dl (0.60-1.20)
[2018-04-19] MEDS: CALCIUM CARBONATE 1250MG TAB PO SCH (09:53)
[2018-04-19] MEDS: CHOLECALCIFEROL 1000 INTER.UNIT TAB PO SCH (09:54)
[2018-04-19] MEDS: ZINC SULFATE 220 MG CAP PO SCH (09:55)
[2018-04-19] MEDS: GABAPENTIN 100 MG CAP PO SCH ×2 (09:55→13:16)
[2018-04-19] MEDS: CEPHALEXIN MONOHYDRATE 500 MG CAP PO SCH ×2 (09:55→13:14)
[2018-04-19] MEDS: FERROUS SULFATE 325 MG TAB PO SCH (09:56)
[2018-04-19] MEDS: OXCARBAZEPINE 150 MG TAB PO SCH (09:56)
[2018-04-19] MEDS: CLOTRIMAZOLE 1% CR 15 GM TUBE EXT SCH (09:59)
[2018-04-19] MEDS: HEPARIN SOD 5000 UNIT/0.5 ML CARP SQ SCH (10:02)
[2018-04-19] MEDS: ACETAMINOPHEN 325 MG TAB PO PRN ×2 (10:26→16:40)
--- NOTE | 2018-04-19 12:45 | Progress Note ---
Internal Med Progress Note Date of Service: April 19, 2018. Provider Documentation: SUBJECTIVE: Seen and examined at bedside Reports cough with intermittent expectoration Dizziness resolved Denies chest pain, SOB Abdominal rash much improved No other complaints OBJECTIVE: Vital Signs-as noted below Physical Exam: General Appearance:Obese, no apparent distress Head: normocephalic, Atraumatic Eyes: normal inspection, EOMI, PERRL Neck: supple, Trachea midline Respiratory/Chest: Normal breath sounds, CTA Cardiovascular: S1, S2, No murmur Abdomen/GI:Soft, Non tender, Bowel sounds present, erythematous rash on abdomen extending to buttocks improving Extremities/Musculoskelatal:normal inspection, no edema Neurologic/Psych:AAOX3, grossly no focal neurological deficits Skin: normal color, warm Lab data as noted below. ASSESSMENT & PLAN: Abdominal Wall Cellulitis: H/O Chronic wound on left side of abdomen ? Atypical Zoster continue Vanco / Zosyn as per ID>>transitioned to Keflex Blood cultures negative to date Appreciate ID and Dermatology input Started on Valtrex: to complete 7 day course but patient developed headache and dizziness Discussed with dermatology: OK to DC Valtrex Plan to continue Keflex as per ID: Likely 10 day course Will add azithromycin to cover any respiratory source Trigeminal Neuralgia: Continue Trileptal Abnormal UA: Denies Dysuria, urinary frequency Urine culture: negative Morbid Obesity: H/O Gastric Bypass Surgery Continue usual supplements BMI:54.9 Electrolytes monitor and replete electrolytes as needed Elevated blood Sugar levels: Denies H/O Diabetes A1C:5.3 EMIGDIO Not using CPAP at home H/O Asthma as per records Denies respiratory symptoms Nebs PRN DVT Px: Heparin SQ Code Status: Full Code Disposition: Likely to discharge home today Follow up with your PCP on 04/25/18 at 12:45pm Follow up with your Infectious disease in 1-2 weeks as advised Complete the antibiotic course as prescribed Seek immediate medical attention if your symptoms reoccur or worsen Vital Signs: Date Time Temp Pulse Resp B/P (MAP) Pulse Ox O2 Delivery O2 Flow Rate FiO2 04/19/18 08:00 Room Air 04/19/18 06:58 36.6 57 18 127/82 (97) 100 04/19/18 00:45 Room Air 04/18/18 23:43 36.9 61 18 118/78 (91) 94 Room Air 04/18/18 16:00 Room Air 04/18/18 15:59 36.5 58 18 142/85 (104) 96 Room Air Lab Results: Results Past 24 Hours Test 04/19/18 06:10 Range/Units White Blood Count 4.91 4.8-10.8 K/uL Red Blood Count 4.13 4.2-5.4 M/uL Hemoglobin 10.8 12.0-16.0 g/dL Hematocrit 34.0 37-47 % Mean Corpuscular Volume 82.3 80-100 fL Mean Corpuscular Hemoglobin 26.2 25-34 pg Mean Corpuscular Hemoglobin Concent 31.8 32-36 g/dl RDW Standard Deviation 52.2 36.4-46.3 fL RDW Coefficient of Variation 17.2 11.5-14.5 % Platelet Count 243 130-400 K/uL Mean Platelet Volume 8.9 7.4-10.4 fL Sodium Level 142 136-145 mmol/L Potassium Level 4.0 3.5-5.1 mmol/L Chloride Level 106 98-107 mmol/L Carbon Dioxide Level 32 21-32 mmol/L Anion Gap 4.0 3-11 mmol/L Blood Urea Nitrogen 6 7-18 mg/dl Creatinine 0.68 0.60-1.20 mg/dl Est Creatinine Clear Calc Drug Dose 126.3 ml/min Estimated GFR () 112.5 Estimated GFR (Non- 97.1 BUN/Creatinine Ratio 9.5 10-20 Random Glucose 83 70-99 mg/dl Calcium Level 8.5 8.5-10.1 mg/dl
[2018-04-19] MEDS ORDERED: AZIT-57 PO (12:57)
[2018-04-19] MEDS ORDERED: FRRS300 PO (12:57)
[2018-04-19] MEDS ORDERED: BENZ100C7 PO (12:57)
[2018-04-19] MEDS ORDERED: KFL500 PO (12:57)
[2018-04-19] MEDS ORDERED: ZNCS220 PO (12:57)
[2018-04-19] MEDS ORDERED: AZITHROMYCIN 250 MG TAB PO ONE (13:00)
--- NOTE | 2018-04-19 13:02 | Discharge Summary ---
Discharge Summary Date of Service April 19, 2018. Discharge Summary Admission Date: April 14, 2018 at 17:57 Discharge Date: April 19, 2018 Discharge Disposition: Home Principal Diagnosis: Abdominal wall Cellulitis Procedures: cxr: No active disease in the chest. Consultations: ID Pending Studies/Follow-Up: Follow up with your PCP on 04/25/18 at 12:45pm Follow up with your Infectious disease in 1-2 weeks as advised Complete the antibiotic course as prescribed Seek immediate medical attention if your symptoms reoccur or worsen Medication Reconciliation New Medications: Azithromycin (Azithromycin) 250 Mg Tab 250 MG PO DAILY for 4 Days, #4 TABS Cephalexin Monohydrate (Cephalexin) 500 Mg Cap 500 MG PO TID for 9 Days, #27 CAP Ferrous Sulfate (Ferrous Sulfate) 325 Mg Tab 325 MG PO BIDM for 30 Days, #60 TAB Zinc Sulfate (Zinc Sulfate) 220 Mg Cap 220 MG PO QAM for 7 Days, #7 CAP Continued Medications: Benzonatate (Benzonatate) 100 Mg Cap 100 MG PO TID PRN for Cough for 7 Days, #21 CAP (This prescription has been renewed) Biotin (Biotin) 5,000 Mcg Cap 5000 MCG PO QPM Calcium Carbonate (Calcium 600) 600 Mg Tab 600 MG PO QAM Cyclobenzaprine HCl (Cyclobenzaprine HCl) 10 Mg Tab 10 MG PO TID PRN for Muscle Spasm Multivitamin (Multivitamin) Tab 1 TAB PO QPM Oxcarbazepine (Oxcarbazepine) 300 Mg Tab 300 MG PO BID Zolpidem Tartrate (Zolpidem Tartrate) 5 Mg Tab 5 MG PO HS PRN for Sleep Admission Information HPI (per Admitting provider): Patient is a 57-year-old female with past medical history of S/P Gastric Bypass , EMIGDIO, Insomnia, Trigeminal Neuralgia, generalized osteoarthritis, Morbid Obesity, H/O Asthma as per records and other problems presents with history of fever and rash on abdomen since 3 days duration. She noticed a small wound on her left side of abdomen about 6 months ago which she was unsure how she obtained it. She reports burning sensation of the rash which was all across the abdomen spread to the back and is warm to touch. Denies itching, insect bite, trauma or similar rash previously. She was evaluated at [facility]gent [facility] center who recommended to be evaluated in ED for IV antibiotics. She also reports dizziness today. She reports taking Tylenol for fever without much relief. Reports poor appetite since 3 days. Denies any history of chest pain, SOB, pedal edema, cough, wheezing, fall, trauma, headache, nausea, vomiting, abdominal pain, diarrhea, weight loss, dysuria, recent travel, sick contact, recent change in medications. Physical Exam (per Admitting): General Appearance: no apparent distress, + obese Head: normocephalic, atraumatic Eyes: normal inspection, PERRL, EOMI ENT: normal ENT inspection, hearing grossly normal Neck: supple, trachea midline Respiratory/Chest: chest non-tender, lungs clear, normal breath sounds, no respiratory distress, no accessory muscle use Cardiovascular: regular rate, rhythm, no murmur, + pertinent finding (Trace B/L pedal edema) Abdomen/GI: normal bowel sounds, non tender, soft, + pertinent finding ( Erythematous rash extending across the lower abdomen like a band extending to buttocks . No drainage. 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 Atypical Zoster continue Vanco / Zosyn as per ID>>transitioned to Keflex Blood cultures negative to date Appreciate ID and Dermatology input Started on Valtrex: to complete 7 day course but patient developed headache and dizziness Discussed with dermatology: OK to DC Valtrex Plan to continue Keflex as per ID: Likely 10 day course Will add azithromycin to cover any respiratory source Trigeminal Neuralgia: Continue Trileptal Abnormal UA: Denies Dysuria, urinary frequency Urine culture: negative Morbid Obesity: H/O Gastric Bypass Surgery Continue usual supplements BMI:54.9 Electrolytes monitor and replete electrolytes as needed Elevated blood Sugar levels: Denies H/O Diabetes A1C:5.3 EMIGDIO Not using CPAP at home H/O Asthma as per records Denies respiratory symptoms Nebs PRN DVT Px: Heparin SQ Code Status: Full Code Disposition: Likely to discharge home today Follow up with your PCP on 04/25/18 at 12:45pm Follow up with your Infectious disease in 1-2 weeks as advised Complete the antibiotic course as prescribed Seek immediate medical attention if your symptoms reoccur or worsen Total time spent on discharge = 35 minutes This includes examination of the patient, discharge planning, medication reconciliation, and communication with other providers. Discharge Instructions Discharge Instructions Date of Service April 19, 2018. Admission Reason for Admission: Cellulitis,Fever Discharge Discharge Diagnosis / Problem: Abdominal wall Cellulitis Discharge Goals Goal(s): Decrease discomfort, Improve function Activity Recommendations Activity Limitations: resume your previous activity Exercise/Sports Limitations: as tolerated . Instructions / Follow-Up Instructions / Follow-Up Follow up with your PCP on 04/25/18 at 12:45pm Follow up with your Infectious disease in 1-2 weeks as advised Complete the antibiotic course as prescribed Seek immediate medical attention if your symptoms reoccur or worsen Current Hospital Diet Patient's current hospital diet: AHA Diet (Heart Healthy) Discharge Diet Recommended Diet: AHA Diet (Heart Healthy) Pending Studies Studies pending at discharge: no Laboratory Results Hemoglobin A1c Test 04/15/18 07:17 Range/Units Estimated Average Glucose 105 mg/dl Hemoglobin A1c 5.3 4.5-5.6 % Work Instructions Return To Work: after follow-up (You are admitted at [facility] on 04/14/18 and discharged on 04/19/18. Can return to work after follow up with your PCP on ) Medical Emergencies . Who to Call and When: Medical Emergencies: If at any time you feel your situation is an emergency, please call 911 immediately. . Non-Emergent Contact Non-Emergency issues call your: Primary Care Provider, Specialist (Infectious disease) Call Non-Emergent contact if: you have a fever, your pain is not controlled, your pain is worsening, your pain is unusual for you, your pain is concerning you, wound has increased drainage, wound has increased redness, wound has increased pain, you have any medication questions Seek immediate medical attention if your symptoms reoccur or worsen . . "Provider Documentation" section prepared by Iggy Melo. . <Electronically signed by Iggy Melo MD> Signed: 04/19/18 1301 Signed: The status of this report is Signed * If report status is Draft, the document has not been finalized by the responsible provider.
[2018-04-19 14:57] VITALS: BP 130/83; PULSE 61; TEMP 36.6; O2SAT 96
[2018-04-19 16:23] VITALS: BP 130/83; PULSE 61; TEMP 36.6; O2SAT 96
== END 2018-04-19 17:49 | disposition home or self-care (01) | DRG 603 ==
LOC: C.EDB 15:47 → C.MS2W 17:57 → UNDOADMIN 17:57 → ENRESERV 18:11
PROVIDERS: ADMIT Internal Medicine; ATTEND Internal Medicine
DX: L03.311 Cellulitis of abdominal wall (principal); Z68.43 Body mass index [BMI] 50.0-59.9, adult; J45.909 Unspecified asthma, uncomplicated; M48.02 Spinal stenosis, cervical region; I10 Essential (primary) hypertension; E66.01 Morbid (severe) obesity due to excess calories; Z98.84 Bariatric surgery status; Z83.3 Family history of diabetes mellitus; G47.33 Obstructive sleep apnea (adult) (pediatric); G50.0 Trigeminal neuralgia; E87.6 Hypokalemia; G47.00 Insomnia, unspecified; Z96.659 Presence of unspecified artificial knee joint; M15.9 Polyosteoarthritis, unspecified

== ENCOUNTER 2025-10-03 11:11 | Observation (INO) ==
--- NOTE | 2025-09-16 13:09 | PAT Medication Instructions ---
Medication Instructions Date of Service September 16, 2025 Home Medications Medication Instructions Recorded oxcarbazepine 300 mg tablet 300 mg PO BID . #60 tabs 05/22/25 multivitamin 1 tab PO BID cyanocobalamin (vitamin B-12) 1,000 mcg/mL injection solution 1,000 mcg IM MONTHLY doxepin 50 mg capsule 50 mg PO QAM phentermine 37.5 mg capsule 37.5 mg PO QAM zolpidem 10 mg tablet (Ambien) 10 mg PO HS PRN Sleep albuterol sulfate 90 mcg/actuation aerosol inhaler 2 puff inhalation QID PRN Cough sumatriptan succinate 100 mg tablet 100 mg PO .COMPLEX PRN Migraine Headache oxcarbazepine 300 mg tablet 300 mg PO BID amoxicillin 500 mg tablet 2,000 mg PO ONCE PRN dental calcium 315 mg (as citrate)-vitamin D3 5 mcg (200 unit) tablet (Calcium Citrate + D) 1 tab PO BID diazepam 5 mg tablet 5 mg PO USEASDIRECTD PRN methocarbamol 500 mg tablet 500 mg PO QID PRN muscle spasm pembrolizumab 50 mg intravenous solution 0 mg IV UD semaglutide (weight loss) 1 mg/0.5 mL subcutaneous pen injector (Wegovy) 1 mg subcut WK vitamin B complex 1 cap PO HS Continue as directed amoxicillin 500 mg tablet 2,000 mg PO ONCE PRN dental diazepam 5 mg tablet 5 mg PO USEASDIRECTD PRN (if needed) STOP 7 days prior to surgery semaglutide (weight loss) 1 mg/0.5 mL subcutaneous pen injector (Wegovy) 1 mg subcut WK STOP 5 days prior to surgery phentermine 37.5 mg capsule 37.5 mg PO QAM ASK your prescriber and surgeon pembrolizumab 50 mg intravenous solution 0 mg IV UD DO NOT take the morning of surgery multivitamin 1 tab PO BID cyanocobalamin (vitamin B-12) 1,000 mcg/mL injection solution 1,000 mcg IM MONTHLY calcium 315 mg (as citrate)-vitamin D3 5 mcg (200 unit) tablet (Calcium Citrate + D) 1 tab PO BID Take morning of surgery With a small sip of water, OTHERWISE NOTHING TO EAT OR DRINK AFTER MIDNIGHT: doxepin 50 mg capsule 50 mg PO QAM albuterol sulfate 90 mcg/actuation aerosol inhaler 2 puff inhalation QID PRN Cough (use if needed; please bring rescue inhaler with you to hospital day of surgery if possible) sumatriptan succinate 100 mg tablet 100 mg PO .COMPLEX PRN Migraine Headache (if needed) oxcarbazepine 300 mg tablet 300 mg PO BID methocarbamol 500 mg tablet 500 mg PO QID PRN muscle spasm (if needed) Take evening before surgery multivitamin 1 tab PO BID zolpidem 10 mg tablet (Ambien) 10 mg PO HS PRN Sleep (if needed) albuterol sulfate 90 mcg/actuation aerosol inhaler 2 puff inhalation QID PRN Cough (if needed) sumatriptan succinate 100 mg tablet 100 mg PO .COMPLEX PRN Migraine Headache (if needed) oxcarbazepine 300 mg tablet 300 mg PO BID calcium 315 mg (as citrate)-vitamin D3 5 mcg (200 unit) tablet (Calcium Citrate + D) 1 tab PO BID methocarbamol 500 mg tablet 500 mg PO QID PRN muscle spasm (if needed) vitamin B complex 1 cap PO HS Other Notes If you have any questions please call us at [phone] or [phone] or [phone] or [phone]
--- NOTE | 2025-09-19 14:08 | Anesthesiology Consultation ---
Date of Service September 19, 2025 Assessment & Plan (1) Encounter for pre-operative examination: Plan - hyponatremia at 130: will send optimization form to PCP Dr. Lb Perkins. - check CBC with diff STAT am DOS given ongoing immunotherapy for renal cancer s/p right nephrectomy. - difficult intubation: "Left thyroid lobectomy (01/01/21): Grade view 1, Glidescope #3, ETT 7 at [facility] (Glidescope needed to verify proper placement of NIMS tube)." - Case discussed in detail with Dr. Chahal who advised updated echo is not needed prior to surgery. - semaglutide instructions: Patient informed at PAT visit to stop 7 days prior to surgery- voiced understanding. Chart Review Chart Review: Pending: Refer to Additional Notes / Consult section and Patient seen in Pre Admission Testing Teaching & Discussion Pre-Anesthesia Teaching/Discussion Notes: Instructed NPO after midnight before surgery, except medications with 15 cc of water. Medication instructions provided according to the PAT guidelines. History Surgery Operation Date: 10/03/25 12:30 Proposed Procedures p Left Femur Prophylactic Intramedullary Nailing - Kory Valentine MD Height/Weight Height: 5 ft 3 in Weight: 92.1 kg Allergies Allergy/AdvReac Type Severity Reaction Status Date / Time aspirin AdvReac Mild cannot Verified 09/16/25 11:28 take d/t hx of gastric bypass baclofen AdvReac Mild Dizziness Verified 09/16/25 11:28 NSAIDS (Non-Steroidal AdvReac Mild cannot Verified 09/16/25 11:28 Anti-Inflamma take d/t hx of gastric bypass Medications Home Medications Medication Instructions Recorded Confirmed Last Taken multivitamin 1 tab PO BID 03/10/21 09/16/25 02/21/24 21:00 cyanocobalamin (vitamin B-12) 1,000 mcg IM MONTHLY 10/27/22 09/16/25 02/01/24 1,000 mcg/mL injection solution doxepin 50 mg capsule 50 mg PO QPM 11/14/23 09/19/25 02/21/24 21:30 phentermine 37.5 mg capsule 37.5 mg PO QAM 11/14/23 09/16/25 02/21/24 07:00 zolpidem 10 mg tablet (Ambien) 10 mg PO HS PRN Sleep 11/14/23 09/16/25 02/21/24 21:30 albuterol sulfate 90 mcg/actuation 2 puff inhalation QID PRN Cough 01/25/24 09/16/25 Unknown aerosol inhaler sumatriptan succinate 100 mg tablet 100 mg PO .COMPLEX PRN Migraine 02/22/24 09/16/25 Unknown Headache oxcarbazepine 300 mg tablet 300 mg PO BID . #60 tabs 05/22/25 09/16/25 Unknown amoxicillin 500 mg tablet 2,000 mg PO ONCE PRN dental 09/16/25 09/16/25 Unknown calcium 315 mg (as 1 tab PO BID 09/16/25 09/16/25 Unknown citrate)-vitamin D3 5 mcg (200 unit) tablet (Calcium Citrate + D) diazepam 5 mg tablet 5 mg PO USEASDIRECTD PRN . 09/16/25 09/16/25 Unknown methocarbamol 500 mg tablet 500 mg PO QID PRN muscle spasm 09/16/25 09/16/25 Unknown pembrolizumab 50 mg intravenous 0 mg IV UD 09/16/25 09/16/25 Unknown solution semaglutide (weight loss) 1 mg/0.5 1 mg subcut WK 09/16/25 09/16/25 Unknown mL subcutaneous pen injector (Wegovy) vitamin B complex 1 cap PO HS 09/16/25 09/16/25 Unknown amoxicillin 500 mg tablet 2,000 mg (4 x 500 mg) PO ONCE #4 09/19/25 09/19/25 Unknown tabs Past Medical History Medical History Aortic valve stenosis last echo in 2020 "aortic stenosis is absent" Asthma only flares up if has cough/ cold used inhaler today (states lungs sometimes act up after having keytruda- had 2 weeks ago) Edema legs bilat-stable per pt GERD (gastroesophageal reflux disease) controlled, stable per pt History of COVID-19 03/2022 home test-cough, slight fever 09/2021 [facility] test- fatigue, fever-resolved at home. Hx of sleep apnea no longer wears mouth guard, due to losing ~ 100 pounds Impending pathological fracture fractured femur in april 2025 due to fall- having current surgery as a result Kidney carcinoma had nephrectomy 03/2025- currently getting keytruda at [facility] Trigeminal neuralgia of left side of face on oxcarbazepine (follows with Dr. Valdivia) Patient denies h/o stroke, seizures, heart attack, heart failure, DM, HTN, blood clots/DVTs or blood transfusions. Exercise / Class Metabolic Activity III < 4 Walking/Shop/Light housework (ambulates with walker, deies chest discomfort or shortness of breath with usual activities) Past Family History Family History Mother Dementia Breast cancer Father Cardiac disorder Sister Breast cancer Family history of thyroid cancer Grandmother (Maternal) Breast cancer Other Family history of diabetes mellitus in father No family history of adverse response to anesthesia Past Surgical History Surgical History Difficult airway for intubation pt unaware H/O hand surgery Left Index Finger Arthrodesis Distal Interphalangeal Joint(Left) History of ERCP History of esophagogastroduodenoscopy (EGD) History of eye surgery (2018) glaucoma procedure to relieve pressure History of gastric bypass (2009) 2009 History of right nephrectomy (10/2024) [facility], had kidney cancer History of surgery (07/13/22) Left Index Finger Mucous Cyst Excision: 08/14/19: MAC sedation at [facility] left index finger surgery 07/13/2022 History of surgical procedure on mouth dental implant History of thyroid surgery (12/2020) Left thyroid lobectomy (01/01/21) Hx of cholecystectomy (03/2025) [facility], returned to surgery 1 week later- had scar tissue removed Hx of colonoscopy Hx of cornea transplant (2010) R/L Hx of foot surgery (2013) left foot reconstructions- multiple Hx of fusion of cervical spine (1999) full rom Hx of total knee replacement LEFT/RT Nausea and vomiting after administration of anesthetic agent denies needing scop patch S/p bilateral blepharoplasty S/P left rotator cuff repair (2020) Past Anesthesia History Difficult Airway and No Family Hx of Anesthesia Complications History of PONV No Hx of Motion Sickness and History of PONV (denies needing scop patch) Social History Smoking Status: Never smoker Do You Dip or Chew Tobacco: No Hx Alcohol Use: No Hx Substance Use: No substance use type: does not use Review of Systems Patient denies chest pain, shortness of breath, dyspnea on exertion, fever, chi lls, cough, wheezing, or palpitations. Physical Exam Vital Signs Vitals BP 148/86 P 83 TEMP 99.1 (Pt reports feeling well/in usual state of health) SP02 94% on RA RESP 18 Physical Patient resting comfortably in chair in no acute distress, alert and oriented, responding appropriately throughout visit Full cervical extension range of motion without pain TMD 3.5 finger breadths Mallampati Score 2 Dentition: intact, denies chipped or loose teeth, caps/crowns, implants or bridges Lungs: normal respiratory effort. Good air movement, clear throughout to auscultation, no adventitious breath sounds Cardiac: regular rate and rhythm, 2/6 systolic murmur noted, no gallops or rubs Carotid arteries: negative bruit bilat Lab Results Anesthesia Preop Results Results Anesthesia Widget: WBC 6.23 K/ul (4.8-10.8) 09/19/25 Hgb 12.2 g/dl (12.0-16.0) 09/19/25 Hct 36.3 % (37.0-47.0) L 09/19/25 Plt 266 K/uL (130-400) 09/19/25 Na 130 mmol/L (136-145) L 09/19/25 K 3.9 mmol/L (3.5-5.1) 09/19/25 Cl 98 mmol/L (98-107) 09/19/25 CO2 24 mmol/L (21-32) 09/19/25 BUN 12 mg/dl (6-23) 09/19/25 Creat 0.82 mg/dl (0.6-1.2) 09/19/25 Glucose Level 123 mg/dl (70-99(Fasting)) H 09/19/25 PT 10.7 Seconds (9.0-12.0) 09/19/25 PTT 30 Seconds (21-31) 09/19/25 INR 1.0 (0.9-1.1) 09/19/25 Blood Type O Positive 09/19/25 Antibody Screen NEGATIVE 09/19/25 Testing Laboratory Results 08/28/25 WBC: 5.2 H/H: PLATELETS: 276,000 Electrocardiogram Date: 02/13/25 NSR with sinus arrhythmia, rate 62 bpm Low voltage QRS, consider pulmonary disease, pericardial effusion or normal variant Septal infarct, cited on or before 11/08/2010 EKG Chest X-Ray Date: 04/30/25 No radiographic evidence of significant acute disease Echocardiogram Date: 05/24/21 EF 66% Normal LV wall motion Grade I diastolic dysfunction Mild aortic stenosis sclerosis without stenosis; trileaflet aortic valve No evidence of pulmonary hypertension
[2025-10-03] MEDS ORDERED: MIDAZOLAM HCL 1 MG/ML 2ML VIAL ONE (11:13)
[2025-10-03] MEDS ORDERED: PROPOFOL IV EMULSION 10 MG/ML 20 ML VIAL IV ONE ×2 (11:14→14:27)
[2025-10-03 11:26] LABS: Hematocrit (blood only) 38.2 % (37.0-47.0); Hemoglobin 13.1 g/dl (12.0-16.0); Immature Granulocytes # (auto) 0.01 K/uL (0.01-0.20); Immature Granulocytes % (auto) 0.2 %; Mean Corpuscular Hemoglobin 29.6 pg (25.0-34.0); Mean Corpuscular Volume 86.4 fL (80.0-100.0); Platelet Count 246 K/uL (130-400); RDW Standard Deviation 43.0 fL (36.4-46.3); Red Blood Count 4.42 M/uL (4.20-5.40); White Blood Count 5.58 K/ul (4.8-10.8)
--- NOTE | 2025-10-03 11:47 | History & Physical Bridge Note ---
Date of Service October 03, 2025 History & Physical Bridge Note I have examined the patient, reviewed the History & Physical and in the interval since the performance of the History & Physical I have noted the following changes of clinical significance: no changes noted
[2025-10-03] MEDS: dexAMETHasone**PF** 10 MG/ML VIAL IV SCH (12:13)
[2025-10-03] MEDS: METOCLOPRAMIDE HCL 10 MG TABLET PO SCH (12:14)
[2025-10-03] MEDS: ACETAMINOPHEN 500 MG TAB PO SCH ×2 (12:14→22:42)
[2025-10-03] MEDS: FAMOTIDINE 20 MG TAB PO SCH (12:14)
[2025-10-03] MEDS: CeleBREX 200 MG CAP PO SCH (12:17)
[2025-10-03] MEDS ORDERED: PROMETHAZINE HCL 6.25 MG in SODIUM CHLORIDE 0.9% 50 ML IV PRN (12:38)
[2025-10-03] MEDS ORDERED: ATROPINE SULFATE 0.1 MG/ML 10ML SYR IV PRN (12:38)
[2025-10-03] MEDS ORDERED: ONDANSETRON INJ 2 MG/ML 2 ML VIAL IV PRN (12:38)
[2025-10-03] MEDS: LR 15ML/HR IV SCH (12:40)
[2025-10-03] MEDS: LR 60ML/HR IV SCH (13:09)
[2025-10-03] MEDS: SODIUM CHLORIDE 0.9% 1,000 ML IV SCH ×2 (13:12→17:29)
[2025-10-03] MEDS ORDERED: BUPIVACAINE 0.5 % 5 MG/1 ML PF 10ML VIAL ONE (13:38)
[2025-10-03] MEDS: TRANEXAMIC ACID 1,000 MG **IV Pre-op IV SCH (13:52)
[2025-10-03] MEDS ORDERED: PHENYLEPHRINE 100MCG/ML 5ML SYR ONE (14:39)
[2025-10-03] MEDS: BUPIVACAINE/EPINEPHRINE 0.5% MPF 1:200,000 30 ML VIAL ONE (14:47)
--- NOTE | 2025-10-03 15:21 | Fluoroscopy Report ---
FL femur LT 2V CLINICAL HISTORY: LT FEMUR NAILING COMPARISON STUDY: 09/11/2025 FLUOROSCOPY TIME: 1 minute 2 seconds FLUOROSCOPY IMAGES: 4 EXPOSURE DOSE: 25 mGy FINDINGS: Fluoroscopy was provided for left femoral gamma nail. IMPRESSION: Intraoperative fluoroscopy. ACT 112: Negative or not required by law. Electronically signed by: Ha Cifuentes M.D. 10/03/2025 3:20 PM
--- NOTE | 2025-10-03 15:34 | Operative Report ---
PG Post Operative Report Pre & Post Diagnosis Operation Date: 10/03/25 12:30 Pre-Op Diagnosis: Left Thigh Pain, Impending Pathologic Fracture Post-Op Diagnosis: Left Thigh Pain, Impending Pathologic Fracture I identified the patient and participated in the time-out.: Yes Procedure Operation Date: 10/03/25 12:30 Actual Procedures p Left Femur Prophylactic Intramedullary Nailing(Left) - Kory Valentine MD Surgeon Kory Valentine MD Marketing Compliance Manager Ayden Linn, PAC Estimated Blood Loss 50 Findings Consistent with Post-Op Diagnosis Specimens Left femur IM reamings sent for pathology Anesthesia Type Spinal MAC Complications none Disposition Accompanied Patient To Recovery: No Indications Patient is a 65-year-old female with known kidney cancer. While she is undergoing treatment and about 2 months ago started develop some thigh and leg pain. X-rays revealed a lytic lesion in the mid aspect of her femur. She had an extensive workup. Patient was continued persistent pain and was indicated for prophylactic IM nailing and attempt at biopsy sending intramedullary reamings.. Description of Procedure Operative implants consisted of: 1 Synthes left 340 mm x 11 mm long trochanteric nail. 2. 90 mm helical blade. 3. 44 mm x 5.0 mm distal interlocking screw x 1. The patient was taken to the op room, identified, placed on the operating table in the supine position. All contact areas were appropriately padded. IV antibiotics were provided by the anesthesia team. A spinal anesthetic been implemented holding area. The patient did have a Goss catheter placed in a sterile fashion. She was then placed on the fracture table. The left leg was placed in boot traction of the right leg was very carefully placed in a well-leg pickering protecting her right side which had a relatively recent but healed periprosthetic femur fracture. I applied some longitudinal traction to the left leg and internally rotated the foot so the kneecap pointed to the ceiling. X- rays brought in to make sure we can get adequate radiographs. Once this was assured the left hip and leg were then prepped and draped in usual sterile fashion. A curvilinear incision was made just proximal to the tip of the trochanter and extended proximally. Sharp dissection was Through subcutaneous tissue down to level the gluteal fascia but the gluteal fascia incised longitudinally in line with skin incision. A guidewire was then placed just lateral to the tip of the trochanter. Was advanced on the IM canal. This was verified fluoroscopically and then overreamed with a 16 mm reamer. This wire was then removed and a ball- tipped guidewire was placed. We measured for nail length and a 340 mm nail was selected. I then began reaming. We attempted to take any reamings that we got and sent them for pathology. We got fairly small amounts of reaming material. I first reamed with a 12 reamer and I reamed up to 14 in order to try and get more intramedullary canal contents and also to make sure there was enough room for this nail as there was no true fracture. Once the reaming was complete placed a 340 mm x 11 mm left long trochanteric nail down the IM canal. It was tapped into position. The lateral aiming arm was attached. A stab incision was made and a lateral aiming arm was advanced the lateral aspect of the femur. A guidewire was placed in the central aspect of the femoral head neck on both the AP and lateral planes. This was then measured and a 90 mm helical blade was selected. The cortical drill was used to breach the cortex and a triple reamer was set at 90 and advanced over the guidewire. A 90 mm helical blade was placed. It was tapped into position. The proximal setscrew was then tightened. The aiming arm was then removed and some final x-rays were obtained proximally. Attention drawn toward distal interlocking. Using a perfect [place] technique a distal interlocking screw was placed at the top of the dynamic hole. A stab incision was made. The drill was used and the screw was placed without difficulty. Some final x-rays were obtained. Attention then drawn toward closing. All wounds were irrigated extensively. I did inject locally with 30 cc of half percent Marcaine with epinephrine. The gluteal fascia was then closed with #1 Vicryl suture in a running fashion. The subcutaneous tissues of all wounds were then closed in 2 layers with a deep layer #1 Vicryl suture in the subcutaneous tissues with 2-0 Dexon suture in a buried interrupted fashion. The skin was then closed with skin joy. A sterile dressing Ugo Xeroform, 4 fours, ABD pad and foam tape was applied. The patient was then taken off the fracture table and transported to the recovery in stable condition. The patient tolerated procedure well and there were no complications. Ayden Linn, my physician drug safety assistant, was present for the entire procedure. His assistance was required for proper patient positioning, prepping and draping, surgical exposure, retraction, performed the technical details of the operation, placement of the implant, closure of the incision site, and placement of postoperative sterile bandage. I attest to the content of the Intraoperative Record and any orders documented therein. Any exceptions are noted below.
--- NOTE | 2025-10-03 16:20 | Anesthesiology Progress Note ---
Date of Service October 03, 2025 Anesthesia Post Procedure Vital Signs Vital Signs: Temp Pulse Pulse Resp BP Pulse Ox O2 Del Method 10/03/25 16:15 60 12 140/83 99 Room Air 10/03/25 16:05 59 L 12 132/84 99 Room Air 10/03/25 15:55 61 14 134/84 98 Room Air 10/03/25 15:45 60 12 122/81 98 Room Air 10/03/25 15:35 61 14 121/74 97 Oxymask 10/03/25 15:28 36.8 C 62 18 114/72 100 Oxymask 10/03/25 11:34 36.4 C L 72 20 124/78 91 Room Air O2 Flow Rate 10/03/25 16:15 10/03/25 16:05 10/03/25 15:55 10/03/25 15:45 10/03/25 15:35 8 10/03/25 15:28 8 10/03/25 11:34 Pain Intensity Left Leg: Pain Intensity: 7 Transfer of Care Handoff Completed per policy Notes Mental Status: alert / awake / arousable Patient Amnestic to Procedure: Yes Nausea / Vomiting: adequately controlled Pain: adequately controlled Airway Patency, RR, SpO2: stable & adequate BP & HR: stable & adequate Hydration State: stable & adequate Neuraxial Anesthesia: was administered and sensory block is resolving Anesthetic Complications: no major complications apparent
[2025-10-03] MEDS ORDERED: ALUMINUM/MAGNESIUM SUSP 30 ML UDC PO PRN (17:06)
[2025-10-03] MEDS ORDERED: ALBUTEROL HFA 8 GM INHALER INH PRN (17:06)
[2025-10-03] MEDS ORDERED: NALOXONE HCL 0.4 MG/1 ML VIAL/CARP IV PRN (17:06)
[2025-10-03] MEDS ORDERED: MAGNESIUM HYDROXIDE SUSP 30 ML UDC PO PRN (17:06)
[2025-10-03] MEDS ORDERED: METOCLOPRAMIDE HCL INJ 5 MG/ML 2 ML VIAL IV PRN (17:06)
[2025-10-03] MEDS ORDERED: ZOLPIDEM TARTRATE 5 MG TAB PO PRN (17:06)
[2025-10-03] MEDS ORDERED: NO NSAIDS SCH (17:06)
[2025-10-03] MEDS: RIVAROXABAN 10 MG TABLET PO SCH (17:44)
[2025-10-03] MEDS: ASCORBIC ACID 500 MG TAB PO SCH (17:44)
[2025-10-03] MEDS: HYDROmorphone INJ 0.5 MG/0.5 ML SYR IV PRN (19:49)
[2025-10-03] MEDS: DOCUSATE SODIUM 100 MG CAP PO SCH (20:17)
[2025-10-03] MEDS: SENNA 8.6 MG TAB PO SCH (20:17)
[2025-10-03] MEDS: VITAMIN B COMPLEX TAB PO SCH (20:18)
[2025-10-03] MEDS: DOXEPIN HCL 50 MG CAPSULE PO SCH (20:18)
[2025-10-03] MEDS: CALCIUM 600MG + VIT D 400 IU TAB PO SCH (20:19)
[2025-10-03] MEDS ORDERED: NON-FORMULARY MEDICATION (Multivitamin Tablet) PO SCH (21:00)
[2025-10-03] MEDS ORDERED: SENNA 8.6 MG TAB PO SCH (21:00)
[2025-10-03] MEDS: TRANEXAMIC ACID / 0.7% NACL 1,000 MG/100 ML BAG IV SCH (22:42)
[2025-10-03] MEDS: METHOCARBAMOL 500 MG TABLET PO PRN (22:49)
[2025-10-03 23:09] VITALS: RESP 16
[2025-10-04 06:50] LABS: Hematocrit (blood only) 30.1 % (37.0-47.0); Hemoglobin 10.3 g/dl (12.0-16.0); Mean Corpuscular Hemoglobin 29.3 pg (25.0-34.0); Mean Corpuscular Volume 85.8 fL (80.0-100.0); Platelet Count 189 K/uL (130-400); RDW Standard Deviation 42.4 fL (36.4-46.3); Red Blood Count 3.51 M/uL (4.20-5.40); White Blood Count 8.39 K/ul (4.8-10.8)
--- NOTE | 2025-10-04 06:50 | Orthopedic Progress Note ---
Date of Service October 04, 2025 Assessment & Plan (1) Impending pathologic fracture: Plan: 65-year-old female with history of kidney cancer now postop day 1 for prophylactic nailing of a impending pathological fracture. She is also recovering from a right periprosthetic femur fracture. She is doing okay but had a pretty rough night pain harrison. Plan: 1. PT/OT. She can fully weight-bear as tolerated. Will see how she does in therapy today. 2. DVT prophylaxis. She is WB wearing thigh-high teds, SCDs, and 1 month of Xarelto due to inability to take aspirin. 2. Pain control. Will continue pain medicine as needed. Seems to do best with hydromorphone and Didox which she is written for. We may try a brief dose of Toradol. 4. Disposition. Will see how she does in therapy today and with further pain control. (2) Periprosthetic fracture around internal prosthetic right knee joint: Admission and Anticipated Discharge Date Admission Date: October 03, 2025 Subjective 65-year-old female postop day 1 from prophylactic IM nailing of a left femoral diaphyseal lesion likely metastatic kidney cancer. She did not have a good night. Still quite a bit of discomfort. No chest pain or shortness of breath. Not feeling dizzy or lightheaded. She is hoping to go home today but wants to see how she does in therapy. Physical Exam Physical Exam: Physical examination is a pleasant middle-age female. As she is lying in bed. She looks reasonably comfortable currently but clearly had a bad night. Examination of the left leg reveals the dressing be clean dry and intact. There is thigh is soft and supple. Leg is well aligned. She is neurologically intact. Respiratory: normal respiratory effort, lungs clear to auscultation Cardiovascular: RRR, no murmur, no edema Gastrointestinal (Abdomen): normal bowel sounds, soft, nontender, no hepatosplenomegaly Results & Data Vital Signs (Past 12 Hours) Vital Signs Temp Pulse Resp BP BP Pulse Ox O2 Del Method 10/04/25 04:21 37 C 74 16 127/72 96 Room Air 10/03/25 23:08 36.7 C 77 16 120/73 96 Room Air 10/03/25 20:17 36.6 C 77 18 123/76 96 Room Air 10/03/25 19:40 Room Air 10/03/25 19:02 36.9 C 85 16 144/88 H 97 Room Air Laboratory Results Labs are pending.
[2025-10-04 07:13] LABS: Anion Gap 7.0 (3-11); Blood Urea Nitrogen 10.0 mg/dl (6-23); Calcium 8.4 mg/dl (8.6-10.3); Carbon Dioxide 23.0 mmol/L (21-32); Chloride 100.0 mmol/L (98-107); Creatinine Clr Calc Pharmacy 69.8 ml/min; Glucose 87.0 mg/dl (70-99(Fasting)); Potassium 3.8 mmol/L (3.5-5.1); Sodium 130.0 mmol/L (136-145)
[2025-10-04] MEDS: MULTIVITAMIN TAB PO SCH (08:05)
[2025-10-04] MEDS: KETOROLAC TROMETHAMINE 15 MG/ML VIAL IV SCH (08:08)
[2025-10-04] MEDS: dexAMETHasone 10 MG in SYRINGE 0 ML IV SCH (08:13)
[2025-10-04] MEDS: ONDANSETRON INJ 2 MG/ML 2 ML VIAL IV PRN (10:13)
[2025-10-04 11:32] VITALS: PULSE 77; TEMP 97.9; O2SAT 100
[2025-10-04 11:49] VITALS: BP 144/88
--- NOTE | 2025-10-06 10:41 | Anesthesia Procedure Note ---
Anesthesia Procedure Note Neuraxial Placement Note Date of procedure: 10/03/25 Consent: Risk / Benefits Reviewed With: PT / POA / Parent / Guardian, Accepts Plan, Informed Consent Obtained and All Questions Answered Monitors attached: Blood Pressure, CO2, EKG and Pulse Oximetry Time out completed: Yes Prehydrate: Lactated ringers Premedication: Midazolam (mg) Position: Sitting Surgical Prep: Hand hygeine: Soap and water Equipment/Supplies: Cap, Mask, Sterile gloves, Sterile drapes and Sterile procedures used Skin prep: Chloraprep Site: Midline Local medication: 2% Lidocaine (ml) Neuraxial placement technique: SAB Needle: 22g x 3.5 inch Quincke Ultrasound Guidance: Ultrasound used: No Anesthetic used: 0.5% Bupivicaine (ml) (3) Parasthesias: No CSF: Yes Blood: No Attempts: 1 Procedure Summary: Procedure done immediately prior to patient entering OR on Monday. SAB done Monday, note entered at a later date. Post-Procedure: Pt hemodynamically stable, Pt tolerates well and No complication
[2025-10-13] MEDS ORDERED: CYANOCOBALAMIN 1000 MCG/ML VIAL IM SCH (09:00)
== END 2025-10-04 12:25 | disposition home or self-care (01) ==
LOC: ASU 11:11 → 3W 15:31 → INTOOBSV 15:31